=== PATIENT | female | born 1970 | race Caucasian/White ===

== ENCOUNTER 2020-02-07 07:31 | Outpatient (CLI) | payer BC, SELFPAY ==
--- NOTE | ~2020-02-07 | MM_ITS ---
EXAMINATION: MM scrn johnathon implant BI w sagar HISTORY: Screening mammogram TECHNIQUE: Craniocaudal and mediolateral oblique 3-D tomosynthesis images with implant displacement a nd synthetic 2-D images were generated. Craniocaudal and mediolateral oblique views of the breasts wi thout implant displacement were obtained using full field digital mammography. CAD analysis was submi tted and interpreted. COMPARISON: 01/30/2019, 02/05/2018, 03/01/2017 BREAST PARENCHYMAL COMPOSITION: There are scattered areas of fibroglandular density. FINDINGS: There is no evidence of suspicious mass, calcification, or architectural distortion to sugg est malignancy in either breast. There has been no suspicious interval change. IMPRESSION: 1. No mammographic evidence of malignancy. 2. Recommend routine screening mammography in one year. BI-RADS Category 1: Negative Reviewed, dictated and finalized at location A.
== END 2020-02-07 07:32 | disposition home or self-care (01) ==
LOC: ANHIMG 07:34
PROVIDERS: PCP Physician Assistant; Visit Provider Physician Assistant
DX: Z12.31 Encounter for screening mammogram for malignant neoplasm of breast (principal)
CPT/HCPCS: 77063; 77067

== ENCOUNTER 2020-06-30 10:59 | Outpatient (NON) | payer BC, SELFPAY ==
[2020-06-30 23:32] LABS: SARS-CoV-2 RNA PCR Negative
== END 2020-06-30 11:00 ==
PROVIDERS: PCP Physician Assistant; Visit Provider Physician Assistant
DX: Z20.828 Contact with and (suspected) exposure to other viral communicable diseases (principal); R19.7 Diarrhea, unspecified
CPT/HCPCS: 87635; C9803; U0003

== ENCOUNTER 2021-02-05 08:48 | Outpatient (CLI) | payer BC, SELFPAY ==
--- NOTE | ~2021-02-05 | MM_ITS ---
EXAMINATION: MM scrn johnathon implant BI w sagar HISTORY: Screening mammogram TECHNIQUE: Craniocaudal and mediolateral oblique 3-D tomosynthesis images with implant displacement a nd synthetic 2-D images were generated. Craniocaudal and mediolateral oblique views of the breasts wi thout implant displacement were obtained using full field digital mammography. CAD analysis was submi tted and interpreted. COMPARISON: 02/07/2020, 01/30/2019, 02/05/2018 BREAST PARENCHYMAL COMPOSITION: There are scattered areas of fibroglandular density. FINDINGS: There is no evidence of suspicious mass, calcification, or architectural distortion to sugg est malignancy in either breast. There has been no suspicious interval change. IMPRESSION: 1. No mammographic evidence of malignancy. 2. Recommend routine screening mammography in one year. BI-RADS Category 1: Negative Reviewed, dictated and finalized at location A.
== END 2021-02-05 08:49 | disposition home or self-care (01) ==
LOC: ANHIMG 08:51
PROVIDERS: PCP Physician Assistant; Visit Provider Physician Assistant
DX: Z12.31 Encounter for screening mammogram for malignant neoplasm of breast (principal)
CPT/HCPCS: 77063; 77067

== ENCOUNTER → 2021-10-15 16:50 | Outpatient (CLI) | payer BC, SELFPAY ==
--- NOTE | ~2021-10-15 | XR_ITS ---
EXAMINATION: XR ankle LT min 3V, XR foot LT min 3V DATE: 10/15/2021 17:13 INDICATION: Posterior left heel pain TECHNIQUE: 1. Anteroposterior, mortise, additional oblique and lateral view of the left ankle were obtained. 2. Dorsoplantar, two oblique and lateral views of the left foot were obtained. COMPARISON: None. FINDINGS: Alignment of the left foot and ankle is normal. No fracture or osteochondral lesion. Joint spaces are well maintained. No ankle joint effusion. Bone island at the neck of the fourth metatarsal. Tiny ent hesopathic ossicle at the distalmost Achilles tendon. No cortical erosion. No cortical erosion. The s oft tissues are unremarkable. IMPRESSION: 1. Tiny enthesopathic ossicle at the distal Achilles tendon. No acute osseous abnormality. Reviewed, dictated and finalized at location A. IMPRESSION: 1. Tiny enthesopathic ossicle at the distal Achilles tendon. No acute osseous a bnormality.
== END ==
PROVIDERS: Visit Provider Physician Assistant
DX: M25.572 Pain in left ankle and joints of left foot (principal); M67.874 Other specified disorders of tendon, left ankle and foot
CPT/HCPCS: 73610; 73630

== ENCOUNTER 2022-01-20 12:37 | Outpatient (CLI) | payer BC, SELFPAY ==
--- NOTE | ~2022-01-20 | MMUS_ITS ---
EXAMINATION: MM diag johnathon implant BI w sagar, US breast RT limited HISTORY: Right breast pain and palpable lump TECHNIQUE: Additional 3-D tomosynthesis images of the breasts were performed and synthetic 2-D images were generated. CAD analysis was submitted and interpreted. High resolution Limited right breast ult rasound was performed. COMPARISON: Comparison to multiple prior studies sequentially, with oldest reviewed study dated 01/2016. BREAST PARENCHYMAL COMPOSITION: Breast composed of scattered areas of fibroglandular density FINDINGS: MAMMOGRAPHIC FINDINGS: There are no suspicious masses, calcifications or architectural distortion in either breast to sugges t malignancy. There are bilateral subpectoral silicone implants. ULTRASOUND: Limited right breast ultrasound: Normal heterogeneous echotexture without focal solid or cystic mass. IMPRESSION: 1. No evidence for malignancy in either breast. 2. Routine yearly screening mammogram and regular clinical breast examination are recommended. BI-RADS Category 1: Negative Reviewed, dictated and finalized at location A. IMPRESSION: 1. No evidence for malignancy in either breast. 2. Routine yearly screening mammogram and regular clinical breast examination a re recommended. BI-RADS Category 1: Negative
== END 2022-01-20 12:38 | disposition home or self-care (01) ==
PROVIDERS: PCP Physician Assistant; Visit Provider Physician Assistant
DX: N64.4 Mastodynia (principal)
CPT/HCPCS: 76642; 77062; 77066; G0279

== ENCOUNTER 2022-12-21 09:25 | Outpatient (CLI) | payer BC, SELFPAY ==
--- NOTE | ~2022-12-21 | MM_ITS ---
EXAMINATION: MM scrn johnathon implant BI w sagar HISTORY: Screening mammogram TECHNIQUE: Craniocaudal and mediolateral oblique 3-D tomosynthesis images with implant displacement a nd synthetic 2-D images were generated. Craniocaudal and mediolateral oblique views of the breasts wi thout implant displacement were obtained using full field digital mammography. CAD analysis was submi tted and interpreted. COMPARISON: 01/20/2022 diagnostic bilateral mammogram and limited right breast ultrasound examination BREAST PARENCHYMAL COMPOSITION: The breasts are heterogeneously dense, which may obscure small masses . FINDINGS: Status post bilateral augmentation mammoplasty. There is no evidence of suspicious mass, ca lcification, or architectural distortion to suggest malignancy in either breast. There has been no ascencio spicious interval change. IMPRESSION: 1. No mammographic evidence of malignancy. 2. Recommend routine screening mammography in one year. BI-RADS Category 1: Negative Reviewed, dictated and finalized at location A.
== END 2022-12-21 09:26 | disposition home or self-care (01) ==
LOC: ANHIMG 09:27
PROVIDERS: PCP Physician Assistant; Visit Provider Physician Assistant
DX: Z12.31 Encounter for screening mammogram for malignant neoplasm of breast (principal)
CPT/HCPCS: 77063; 77067

== ENCOUNTER 2024-01-08 07:20 | Outpatient (CLI) | payer BC, SELFPAY ==
--- NOTE | ~2024-01-08 | MM_ITS ---
EXAMINATION: MM scrn johnathon implant BI w sagar HISTORY: Screening mammogram TECHNIQUE: Craniocaudal and mediolateral oblique 3-D tomosynthesis images with implant displacement a nd synthetic 2-D images were generated. Craniocaudal and mediolateral oblique views of the breasts wi thout implant displacement were obtained using full field digital mammography. CAD analysis was submi tted and interpreted. COMPARISON: Comparison to multiple prior studies sequentially, with oldest reviewed study dated 02/05. BREAST PARENCHYMAL COMPOSITION: Dense: The breasts are heterogeneously dense, which may obscure small masses FINDINGS: There is no evidence of suspicious mass, calcification, or architectural distortion to sugg est malignancy in either breast. There has been no suspicious interval change. IMPRESSION: 1. No mammographic evidence of malignancy. 2. Recommend routine screening mammography in one year. BI-RADS Category 1: Negative Reviewed, dictated and finalized at location B.
== END 2024-01-08 07:21 | disposition home or self-care (01) ==
LOC: ANHIMG 07:24
PROVIDERS: PCP Physician Assistant; Visit Provider Physician Assistant
DX: Z12.31 Encounter for screening mammogram for malignant neoplasm of breast (principal)
CPT/HCPCS: 77063; 77067

== ENCOUNTER 2024-01-09 13:51 | Outpatient (CLI) | payer BC, SELFPAY ==
--- NOTE | ~2024-01-09 | XR_ITS ---
EXAM: XR knee RT 3V DATE: 01/09/2024 14:05 HISTORY: Pain R knee . COMPARISON: None available. FINDINGS: Normal mineralization. No fracture or dislocation. No lytic or blastic lesion. Mild medial compartment joint space narrowing. Mild medial compartment and patellofemoral compartment osteophyto sis. Moderate volume joint fluid. No erosion or periosteal change. Soft tissues within normal limits. IMPRESSION: Mild medial and patellofemoral compartment osteoarthritis. Moderate joint effusion. Reviewed, dictated and finalized at location K.
== END 2024-01-09 13:52 ==
LOC: MICIMG 13:53
PROVIDERS: PCP Physician Assistant; Visit Provider Physician Assistant
DX: M17.11 Unilateral primary osteoarthritis, right knee (principal); M25.461 Effusion, right knee
CPT/HCPCS: 73562

== ENCOUNTER 2024-12-19 14:11 | Outpatient (CLI) | payer BC, SELFPAY ==
--- NOTE | ~2024-12-19 | MM_ITS ---
EXAMINATION: MM scrn johnathon implant BI w sagar HISTORY: Screening mammogram TECHNIQUE: Craniocaudal and mediolateral oblique 3-D tomosynthesis images with implant displacement a nd synthetic 2-D images were generated. Craniocaudal and mediolateral oblique views of the breasts wi thout implant displacement were obtained using full field digital mammography. CAD analysis was submi tted and interpreted. COMPARISON: Comparison to multiple prior studies sequentially, with oldest reviewed study dated 01/30. BREAST PARENCHYMAL COMPOSITION: Dense: The breasts are heterogeneously dense, which may obscure small masses FINDINGS: There is increasing asymmetry laterally in the left breast on CC views, posterior third. Th ere is no evidence for malignancy in the right breast. IMPRESSION: 1. Developing left breast asymmetry laterally on CC view. 2. Additional mammographic views and possible breast ultrasound are recommended. BI-RADS Category 0: Incomplete: Needs additional imaging evaluation. Reviewed, dictated and finalized at location A. IMPRESSION: 1. Developing left breast asymmetry laterally on CC view. 2. Additional mammographic views and possible breast ultrasound are recommended . BI-RADS Category 0: Incomplete: Needs additional imaging evaluation.
--- OUTSIDE RECORDS SUMMARY | 2024-12-19 14:16 | XMS_ITS | Encounter Summary ---
Author Organization [facility] Address [address] [place] [address] Care Team Providers Care Kitchen Stewardess Name Role Phone Janet Melara Primary Care Pr ovider Encounter Details Date Type Department Care Team (Late st Contact Info) Description 07/10/2019 Lab Requisition [facility] [address] [facility] [place] [id number] Annette Farrell DO [address] [facility] [address] [place] [address] Social History Tobacco Use Types Packs/Day Years Used Date Smoking Tobacco: Never Smokeless Tobacco: Never Alcohol Use Standard Drinks/Week Comments Yes 0 (1 standard drink = 0.6 oz pur e alcohol) social Comments No Sex and Gender Information Value Date Recorded Sex Assigned at Not on file Legal Sex Female 10:02 AM DIRECTOR MEDICAL Gender Identity Not on file Sexual Orientation Not on file documented as of this encounter Plan of Treatment Not on file documented as of this encounter Procedures Procedure Name Priority Date/Time Associated Diagnosis Comments DERMATOPATHOLOGY Routine 07/09/2019 12:0 0 AM DIRECTOR MEDICAL documented in this encounter Results * DERMATOPATHOLOGY (07/09/2019 12:00 AM DIRECTOR MEDICAL) Case Report Dermatopathology Report Case: [id number] Authorizing Provider: Annette Farrell DO Collected: 07/09/2019 12:00 AM Ordering Location: [facility] Lab Received: 07/10/2019 11:51 AM Pathologist: Neeta Delcid MD Specimen: Skin, mid chest 10:55 AM [facility]ERMAT[facility] Final Diagnosis Specimen A. 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 Equality papule x3 months. 10:55 AM [facility]ERMATOPATH[facility] Gross Description Specimen A: Received is one formalin filled container labeled with the patient's name and designated mid chest. The specimen consists of a shave measuring [id number]. Jar 0. 10:55 AM [facility]ERMATOPATHOLOGY [facility] Microscopic Description Specimen A. SKIN, mid chest: The epidermis shows parakeratosis, full thickness disorderly maturation of keratinocytes, mitoses at different levels, and dyskeratotic cells. 10:55 AM [facility] DERMATOPATHOLOGY [facility]OR[facility] Disclaimer An external and internal positive and negative controls are appropriate for the histochemical, immunohistochemical and immunofluorescence stain(s) in this case (if any), except where stated explicitly. The performance characteristics of the stain(s) cited in this report were developed and its performance characteristic determined by the Dermatopathology Laboratory at [facility], directed by Dr. Shreyas Campbell. These tests need not be, and therefore are not, approved by the [place] Food and Drug Administration. The tests are used for clinical purposes. Billing Codes Specimen Charges Stain Charges 83910 1 10:55 AM [facility] DERMATOPATHOLOGY [facility] Embedded Images 10:55 AM [facility] DERMATOPATHOLOGY [facility]OR[facility]ORY Pathology/Cytolog y TISSUE SPECIMEN FROM SKIN / Unknown 07/09/2019 07/10/2019 11:51 AM [facility] us Annette Farrell DO LAB - PATHOLOGY/CYTOLOGY ORDERABLES Final Result DERMATOPATHOLOGY LABORATORY [facility] - Department of Dermatology [address] [facility] [place] [address], [facility] [phone] documented in this encounter Visit Diagnoses Not on filedocumented in this encounter Care Teams Kitchen Stewardess Relationship Specialty Start Date End Date Janet Melara PA [address] [place] [address] PCP - General Physician Hedis Review Nurse 05/29/15 documented as of this encounter
--- OUTSIDE RECORDS SUMMARY | 2024-12-19 14:16 | XMS_ITS | Clinical Summary ---
Author Organization [facility] Address [address] [place] [address] Care Team Providers Care Refrigeration Unit Repairer Name Role Phone Janet Melara Primary Care Pr ovider Source Comments [facility],non-owned Affiliates and Associated Physician Practices is amultiple site organization consisting of ambulatory clinics and hospital sitesin [place], [place], [place] and [place]. This disclosure is being madepursuant to the Care Everywhere program and may not contain all information available regarding this patient. Last updated 18.[facility] Allergies No known active allergies Medications * Be aware that medications may not be up to date on this document. Alwaysverify current medications with the patient. levothyroxine (SYNTHROID) 200 MCG tablet Take 200 mcg by mouth daily before breakfast Active ibuprofen (MOTRIN) 600 MG tablet Take 1 Tab by mouth every 6 hours as needed for Pain 50 Tab 0 5 Active oxyCODONE-aceta minophen (PERCOCET) 5-325 MG tablet Take 1 Tab by mouth every 6 hours as needed for Pain 30 Tab 0 5 Active Active Problems Problem Noted Date Diagnosed Date Pain in joint involving left pelvic region and t high 06/03/2015 Chronic pelvic pain in female 06/03/2015 Endometriosis 06/03/2015 Preop examination Social History Tobacco Use Types Packs/Day Years Used Date Smoking Tobacco: Never Smokeless Tobacco: Never Alcohol Use Standard Drinks/Week Comments Yes 0 (1 standard drink = 0.6 oz pur e alcohol) social Comments No Sex and Gender Information Value Date Recorded Sex Assigned at Not on file Legal Sex Female 10:02 AM MID LEVEL PRACTITIONER Gender Identity Not on file Sexual Orientation Not on file Last Filed Vital Signs Vital Sign Reading Time Taken Comments Blood Pressure 124/72 07/12/2017 3:47 PM MID LEVEL PRACTITIONER Pulse 70 06/03/2015 11:35 AM MID LEVEL PRACTITIONER Temperature 36.7 C (98 F) 06/03/2015 10:47 AM MID LEVEL PRACTITIONER Respiratory Rate 18 06/03/2015 11:35 AM MID LEVEL PRACTITIONER Oxygen Saturation 100% 06/03/2015 11:35 AM MID LEVEL PRACTITIONER Inhaled Oxygen Concentration - - Weight 77.1 kg (170 lb) 07/12/2017 3:47 PM MID LEVEL PRACTITIONER Height 172.7 cm (5' 8) 07/12/2017 3:47 PM MID LEVEL PRACTITIONER Body Mass Index 25.85 07/12/2017 3:47 PM MID LEVEL PRACTITIONER Plan of Treatment Health Maintenance Due Date Last Done Comments COLOGUARD (AGES 45-75) - COL ON CA SCREENING 1969 COLON MONITORING 1969 COLONOSCOPY - COLON CA SCREENING 1969 CT COLONOGRAPHY - COLON CA SCREENING 1969 Colorectal Cancer Screening 1969 FIT - COLON CA SCREENING 1969 FLEX SIG - COLON CA SCREENING 1969 LIPID TESTING 1969 MAMMOGRAM 1969 PAP SMEAR 1969 HIV SCREENING 1984 HEPATITIS C SCREENING 12/25/1987 DTAP/TDAP/TD VACCINES (1 - Tdap) 1988 HEPATITIS B VACCINE (1 of 3 - 19+ 3-dose series) 1988 PNEUMOCOCCAL VACCINE 50+ (1 of 1 - PCV) 12/30/2019 ZOSTER VACCINE (1 of 2) 12/30/2019 COVID-19 VACCINE ( - 2023-2 5 season) 2024 DEPRESSION SCREENING 07/24/2024 INFLUENZA VACCINE (Season Ended) 2025 HIB VACCINE Aged Out No longer eligi ble based on patient's age to complete this topic HPV VACCINE Aged Out No longer eligi ble based on patient's age to complete this topic MENINGOCOCCAL (Group B) VACC INE SHARED DECISION-MAKING Aged Out No longer eligibl e based on patient's age to complete this topic MENINGOCOCCAL GROUPS A/C/Y/W VACCINE Aged Out No longer eligible b ased on patient's age to complete this topic Insurance ANTHEM ANTHEM Care Teams Refrigeration Unit Repairer Relationship Specialty Start Date End Date Janet Mealra PA [address] [place] [id number] PCP - General Physician Diagnostic Medical Sonographer 05/29/15
--- OUTSIDE RECORDS SUMMARY | 2024-12-19 14:16 | XMS_ITS | Data Portability ---
Author Organization [facility], Main Office Address [address] [place] [address] Care Team Providers Care Manager Test Name Role Phone SHAKIRAANDREW YENI Primary Care Provider [phone] YENI BOSE Referring Provider [phone] Assessment No assessment recorded. Plan of Treatment Reminders Order Date Submit Date Provider Last Modified By Organization Details Last Modified Time Details Appointments None recorded. Lab T3, free, serum or plasma 2022 023 [facility], [address], [place], [address], 3 05:01:33 TSH + free T4, serum 2022 023 [facility], [address], [place], [address], 3 05:01:33 thyroid peroxidase (tpo) Ab, serum 2022 023 [facility], [address], [place], [address], 3 05:01:33 CBC w/ auto diff 2022 023 [facility], [address], [place], [address], 3 05:50:46 CMP, serum or plasma 2022 023 [facility], [address], [place], [address], 3 05:50:44 urinalysis complete, reflex culture 2022 023 [facility], [address], [place], [address], 3 05:50:46 lipid panel, serum 2022 023 [facility], [address], [place], [address], 3 05:50:42 HbA1c (hemoglobin A1c), blood 2022 023 [facility], [address], [place], [address], 3 05:50:45 Referral None recorded. Procedures None recorded. Surgeries None recorded. Imaging None recorded. Medication Orders None recorded. Patient TargetsNo targets recorded. Patient InstructionsNo instructions recorded. Reason for Referral None Reported. Results Created Date Observation Date Name Description Value Unit Range Abnormal Flag Note LastModifiedBy Organization Detail LastModifiedTime 02/19/20 21 02/19/2021 SARS COV 2 AB (IGG) SPIKE , SEMI QN sars cov 2 Ab (IgG) spike, semi qn <1.00 index <1.00 normal Refer ence Range INDEX INTER PRETA TION <1.00 Negat james > or = 1.00 Posit james This test is inten ded to help ident anatoly indiv idual s with antib odies to SARS- CoV-2 (COVI D-19) . The resul ts of this semi- quant itati ve test shoul d not be inter prete d as an indic ation or degre e of immun ity or prote ction from reinf ectio n. A test resul t that is 1.00 or more (Posi tive) means antib odies to SARS- CoV-2 were detec brandon in the blood sampl e by the test. This could mean that the indiv idual may have an immun e respo nse to a recen t or prior infec tion with SARS- CoV-2 . Posit james resul ts may occur after COVID -19 vacci natio n, but the clini manolo signi fican ce of a posit james antib ramo resul t for indiv idual s that have recei ilya a COVID -19 vacci ne is unkno wn, and the perfo rmanc e of the test has not been estab lishe d in COVID -19 vacci nees. False posit james resul ts for the test may occur due to cross - react ivity from pre-e xisti ng antib odies or other possi ble cause s. A test resul t that is less than 1.00 (Nega tive) means that antib odies were not detec brandon in the blood sampl e by the test. This could mean that the indiv idual has not been previ ously infec brandon with SARS- CoV-2 . The clini manolo signi fican ce of a negat james antib ramo resul t for indiv idual s that have recei ilya a COVID -19 vacci ne is unkno wn. The perfo rmanc e of the test has not been estab lishe d in COVID -19 vacci nees. False negat james resul ts for the test may occur if the indiv idual 's antib odies have not reach ed a suffi cient level for the test to be able to detec t them. Antib odies can take up to two to three weeks (some times longe r) to devel op after someo ne is infec brandon. How long antib odies to SARS- CoV-2 last after infec tion is not known . This test shoul d not be used to diagn ose an activ e SARS- CoV-2 infec tion. If an activ e infec tion is suspe cted, direc t molec ular or antig en testi ng for SARS- CoV-2 is recom joseph d. Oliver martinez w the Fact Sheet s avail able for healt hcare provi ders and patie nts using the follo wing websi eusebio: https ://suleman w.Que stDia gnost ics.c om/ho me/Co vid-1 9/HCP /anti body/ fact- sheet 8 https ://suleman w.Que stDia gnost ics.c om/ho me/Co vid-1 9/Pat ients / antib ramo/f act-s heet8 Healt hcare Provi ders: For addit ional infor aaron rodgers e refer to: http: //christa fernandez stdia gnost ics.c om/fa q/FAQ 219 (This link is being provi ded for infor aaron leonardo/ educa sil l purpo ses only. ) This test has been autho rized by the FDA under an Emerg ency Use Autho rizat ion (EUA) for use by autho rized labor atori es. The FDA autho rized label ing is avail able on the [facility] websi te: www.Q uestD iagno [employer]/ Covid 19. Not Available [employer] [address] [address] [place], [address], 02/19/2021 08:02:31 08/09/1908/10/2021 T3, FREE T3, free 2.5 pg/mL 2.3-4. 2 normal Not Available [facility] [address] [address] [place], [address], 08/10/2021 07:50:52 08/09/19 22 08/10/2021 TSH+F REE T4 TSH 0.65 mIU/L normal Refer ence Range > or = 20 Years 0.40- 4.50 Pregn octavio Range s First trime ster 0.26- 2.66 Secon d trime ster 0.55- 2.73 Third trime ster 0.43- 2.91 Not Available [facility] [address] [address] [place], [address], 08/10/2021 07:50:51 08/09/1908/10/2021 TSH+F REE T4 T4, free 1.4 NG/dL 0.8-1. 8 normal Not Available [facility] [address] [address] [place], [address], 08/10/2021 07:50:51 08/09/19 22 08/10/2021 URINA LYSIS ,COMP LETE( REFL) color dark yellow yellow normal Not Available [address], [address], 08/10/2021 12:57:19 08/09/19 22 08/10/2021 URINA LYSIS ,COMP LETE( REFL) appearance turbid clear abnormal Not Available [address], [address], 08/10/2021 12:57:19 08/09/19 22 08/10/2021 URINA LYSIS ,COMP LETE( REFL) specific gravity 1.028 1.001- 1.035 normal Not Available [address], [address], 08/10/2021 12:57:19 08/09/19 22 08/10/2021 URINA LYSIS ,COMP LETE( REFL) pH < or = 5.0 5.0-8. 0 normal Not Available [address], [address], 08/10/2021 12:57:19 08/09/19 22 08/10/2021 URINA LYSIS ,COMP LETE( REFL) glucose negati ve negati ve normal Not Available [address], [address], 08/10/2021 12:57:19 08/09/19 22 08/10/2021 URINA LYSIS ,COMP LETE( REFL) bilirubin negati ve negati ve normal Not Available [facility] [address], [address], 08/10/2021 12:57:19 08/09/19 22 08/10/2021 URINA LYSIS ,COMP LETE( REFL) ketones trace negati ve abnormal Not Available [facility] [address], [address], 08/10/2021 12:57:19 08/09/19 22 08/10/2021 URINA LYSIS ,COMP LETE( REFL) occult blood negati ve negati ve normal Not Available [address], [address], 08/10/2021 12:57:19 08/09/19 22 08/10/2021 URINA LYSIS ,COMP LETE( REFL) protein negati ve negati ve normal Not Available [address], [address], 08/10/2021 12:57:19 08/09/19 22 08/10/2021 URINA LYSIS ,COMP LETE( REFL) nitrite negati ve negati ve normal Not Available [address], [address], 08/10/2021 12:57:19 08/09/19 22 08/10/2021 URINA LYSIS ,COMP LETE( REFL) leukocyte esterase trace negati ve abnormal Not Available [address], [address], 08/10/2021 12:57:19 08/09/19 22 08/10/2021 URINA LYSIS ,COMP LETE( REFL) WBC 0-5 /hpf < or = 5 normal Not Available [address], [address], 08/10/2021 12:57:19 08/09/19 22 08/10/2021 URINA LYSIS ,COMP LETE( REFL) RBC 0-2 /hpf < or = 2 normal Not Available [address], [address], 08/10/2021 12:57:19 08/09/19 22 08/10/2021 URINA LYSIS ,COMP LETE( REFL) squamous epithelial cells 20-40 /hpf < or = 5 abnormal Not Available [address], [address], 08/10/2021 12:57:19 08/09/19 22 08/10/2021 URINA LYSIS ,COMP LETE( REFL) bacteria few /hpf none seen abnormal Not Available [address], [address], 08/10/2021 12:57:19 08/09/19 22 08/10/2021 URINA LYSIS ,COMP LETE( REFL) hyaline cast 0-5 /lpf none seen abnormal Not Available [facility] [address], [address], 08/10/2021 12:57:19 08/09/19 22 08/10/2021 CBC (INCL UDES DIFF/ PLT) white blood cell count 3.7 thous and/u L 3.8-10 .8 low Not Available [address], [address], 08/10/2021 12:57:19 08/09/19 22 08/10/2021 CBC (INCL UDES DIFF/ PLT) red blood cell count 4.38 ian on/uL 3.80-5 .10 normal Not Available [address], [address], 08/10/2021 12:57:08/09/19 22 08/10/2021 CBC (INCL UDES DIFF/ PLT) hemoglobin 13.3 g/dL 11.7-1 5.5 normal Not Available [address], [address], 08/10/2021 12:57:08/09/19 22 08/10/2021 CBC (INCL UDES DIFF/ PLT) hematocrit 39.7 % 35.0-4 5.0 normal Not Available [address], [address], 08/10/2021 12:57:19 08/09/19 22 08/10/2021 CBC (INCL UDES DIFF/ PLT) MCV 90.6 fL 80.0-1 00.0 normal Not Available [address], [address], 08/10/2021 12:57:19 08/09/19 22 08/10/2021 CBC (INCL UDES DIFF/ PLT) MCH 30.4 pg 27.0-3 3.0 normal Not Available [address], [address], 08/10/2021 12:57:19 08/09/19 22 08/10/2021 CBC (INCL UDES DIFF/ PLT) MCHC 33.5 g/dL 32.0-3 6.0 normal Not Available [address], [address], 08/10/2021 12:57:19 08/09/19 22 08/10/2021 CBC (INCL UDES DIFF/ PLT) RDW 12.1 % 11.0-1 5.0 normal Not Available [address], [address], 08/10/2021 12:57:19 08/09/19 22 08/10/2021 CBC (INCL UDES DIFF/ PLT) platelet count 164 thous and/u L 140-40 0 normal Not Available [address], [address], 08/10/2021 12:57:19 08/09/19 22 08/10/2021 CBC (INCL UDES DIFF/ PLT) MPV 12.2 fL 7.5-12 .5 normal Not Available [address], [address], 08/10/2021 12:57:19 08/09/19 22 08/10/2021 CBC (INCL UDES DIFF/ PLT) absolute neutrophils 2128 cells /uL 1500-7 800 normal Not Available [address] [place], [address], 08/10/2021 12:57:19 08/09/19 22 08/10/2021 CBC (INCL UDES DIFF/ PLT) absolute lymphocytes 1151 cells /uL 850-39 00 normal Not Available [facility] [address] [address] [place], [address], 08/10/2021 12:57:19 08/09/19 22 08/10/2021 CBC (INCL UDES DIFF/ PLT) absolute monocytes 211 cells /uL 200-95 0 normal Not Available [facility] [address], [address], 08/10/2021 12:57:19 08/09/19 22 08/10/2021 CBC (INCL UDES DIFF/ PLT) lymphocytes 31.1 % normal Not Available [facility] [address] [place], [address], 08/10/2021 12:57:19 08/09/19 22 08/10/2021 CBC (INCL UDES DIFF/ PLT) absolute eosinophils 170 cells /uL 15-500 normal Not Available [facility] [address], [address], 08/10/2021 12:57:19 08/09/19 22 08/10/2021 CBC (INCL UDES DIFF/ PLT) absolute basophils 41 cells /uL 0-200 normal Not Available [facility] [address], [address], 08/10/2021 12:57:19 08/09/19 22 08/10/2021 CBC (INCL UDES DIFF/ PLT) neutrophils 57.5 % normal Not Available [facility] [address], [address], 08/10/2021 12:57:19 08/09/19 22 08/10/2021 CBC (INCL UDES DIFF/ PLT) monocytes 5.7 % normal Not Available [facility] - [address], [address], 08/10/2021 12:57:19 08/09/19 22 08/10/2021 CBC (INCL UDES DIFF/ PLT) eosinophils 4.6 % normal Not Available [address], [address], 08/10/2021 12:57:19 08/09/19 22 08/10/2021 CBC (INCL UDES DIFF/ PLT) basophils 1.1 % normal Not Available [facility] [address], [address], 08/10/2021 12:57:19 08/09/19 22 08/10/2021 HEMOG LOBIN A1C hemoglobin A1C 5.2 %_of_ total _HGB <5.7 normal Not Available [address], [address], 08/10/2021 12:57:18 08/09/19 22 08/10/2021 COMPR EHENS JAMES METAB OLIC PANEL urea nitrogen (BUN) 19 mg/dL 7-25 normal Not Available [address], [address], 08/10/2021 12:57:18 08/09/19 22 08/10/2021 COMPR EHENS JAMES METAB OLIC PANEL glucose 81 mg/dL 65-99 normal Fasti ng refer ence inter bambi Not Available [address], [address], 08/10/2021 12:57:18 08/09/19 22 08/10/2021 COMPR EHENS JAMES METAB OLIC PANEL creatinine 0.85 mg/dL 0.50-1 .05 normal For patie nts >49 years of age, the refer ence limit for Creat inine is appro ximat baldo 13% highe r for peopl e ident ified as Afric an-Am alexander n. Not Available [address] [place], [address], 08/10/2021 12:57:18 08/09/19 22 08/10/2021 COMPR EHENS JAMES METAB OLIC PANEL eGFR non-afr. chinese 79 mL/mi n/1.7 3m2 > or = 60 normal Not Available [address], [address], 08/10/2021 12:57:18 08/09/19 22 08/10/2021 COMPR EHENS JAMES METAB OLIC PANEL eGFR 92 mL/mi n/1.7 3m2 > or = 60 normal Not Available [address], [address], 08/10/2021 12:57:18 08/09/19 22 08/10/2021 COMPR EHENS JAMES METAB OLIC PANEL BUN/creatini ne ratio not applic able (calc ) 6-22 Not Available [address], [address], 08/10/2021 12:57:18 08/09/19 22 08/10/2021 COMPR EHENS JAMES METAB OLIC PANEL sodium 143 mmol/ L 135-14 6 normal Not Available [address], [address], 08/10/2021 12:57:18 08/09/19 22 08/10/2021 COMPR EHENS JAMES METAB OLIC PANEL potassium 4.4 mmol/ L 3.5-5. 3 normal Not Available [facility] [address], [address], 08/10/2021 12:57:18 08/09/19 22 08/10/2021 COMPR EHENS JAMES METAB OLIC PANEL chloride 105 mmol/ L 98-110 normal Not Available [facility] [address], [address], 08/10/2021 12:57:18 08/09/19 22 08/10/2021 COMPR EHENS JAMES METAB OLIC PANEL carbon dioxide 32 mmol/ L 20-32 normal Not Available [address], [address], 08/10/2021 12:57:18 08/09/19 22 08/10/2021 COMPR EHENS JAMES METAB OLIC PANEL calcium 9.6 mg/dL 8.6-10 .4 normal Not Available [address], [address], 08/10/2021 12:57:18 08/09/19 22 08/10/2021 COMPR EHENS JAMES METAB OLIC PANEL protein, total 6.8 g/dL 6.1-8. 1 normal Not Available [address], [address], 08/10/2021 12:57:18 08/09/19 22 08/10/2021 COMPR EHENS JAMES METAB OLIC PANEL albumin 4.5 g/dL 3.6-5. 1 normal Not Available [address], [address], 08/10/2021 12:57:18 08/09/19 22 08/10/2021 COMPR EHENS JAMES METAB OLIC PANEL globulin 2.3 g/dL_ (calc ) 1.9-3. 7 normal Not Available [address], [address], 08/10/2021 12:57:18 08/09/19 22 08/10/2021 COMPR EHENS JAMES METAB OLIC PANEL albumin/glob ulin ratio 2.0 (calc ) 1.0-2. 5 normal Not Available [address], [address], 08/10/2021 12:57:18 08/09/19 22 08/10/2021 COMPR EHENS JAMES METAB OLIC PANEL bilirubin, total 0.7 mg/dL 0.2-1. 2 normal Not Available [address], [address], 08/10/2021 12:57:18 08/09/19 22 08/10/2021 COMPR EHENS JAMES METAB OLIC PANEL alkaline phosphatase 63 U/L 37-153 normal Not Available [address], [address], 08/10/2021 12:57:18 08/09/19 22 08/10/2021 COMPR EHENS JAMES METAB OLIC PANEL AST 18 U/L 10-35 normal Not Available [address], [address], 08/10/2021 12:57:18 08/09/19 22 08/10/2021 COMPR EHENS JAMES METAB OLIC PANEL ALT 17 U/L 6-29 normal Not Available [address], [address], 08/10/2021 12:57:18 08/09/19 22 08/10/2021 LIPID PANEL WITH RATIO S cholesterol, total 206 mg/dL <200 high Not Available [address], [address], 08/10/2021 12:57:17 08/09/19 22 08/10/2021 LIPID PANEL WITH RATIO S HDL cholesterol 71 mg/dL > or = 50 normal Not Available [address], [address], 08/10/2021 12:57:17 08/09/19 22 08/10/2021 LIPID PANEL WITH RATIO S triglyceride s 44 mg/dL <150 normal Not Available [address], [address], 08/10/2021 12:57:17 08/09/19 22 08/10/2021 LIPID PANEL WITH RATIO S LDL-choleste rol 122 mg/dL _(manolo c) high Refer ence range : <100 Joshua able range <100 mg/dL for prima ry preve ntion ; <70 mg/dL for patie nts with CHD or diabe tic patie nts with > or = 2 CHD risk facto rs. LDL-C is now calcu lated using the Laila n-Hop kins kylahu emiliano n, which is a valid ated novel donnyo lili ahmadii nneka josete r accur acy than the Fried dre equat ion in the estim ation of LDL-C . Laila rogers SS et al. CHELSEY. 2013; 310(1 9): 2061- 2068 (http ://ed ucati on.Qu Simulmedia. com/f aq/FA Q164) Not Available [facility] [address] [address] [place], [address], 08/10/2021 12:57:17 08/09/19 22 08/10/2021 LIPID PANEL WITH RATIO S chol/HDLC ratio 2.9 (calc ) <5.0 normal Not Available [facility] [address] [address] [place], [address], 08/10/2021 12:57:17 08/09/19 22 08/10/2021 LIPID PANEL WITH RATIO S LDL/HDL ratio 1.7 (calc ) Below avera ge Risk: <2.34 [place] Risk: 2.35- 4.12 Moder ate Risk: 4.13- 5.56 High Risk: >5.57 Not Available [facility] [address] [address] , [place], [address], 08/10/2021 12:57:17 08/09/19 22 08/10/2021 LIPID PANEL WITH RATIO S non HDL cholesterol 135 mg/dL _(manolo c) <130 high For patie nts with diabe eusebio plus 1 major ASCVD risk facto r, treat ing to a non-H DL-C goal of <100 mg/dL (LDL- C of <70 mg/dL ) is consi juan franciscod a therespinoza peeliana c optio n. Not Available [facility] [address] [address], [place], [address], 08/10/2021 12:57:17 08/09/19 22 08/10/2021 SARS COV2, IGG NUCLE OCAP, IGM SPIKE , QL sars cov 2 Ab IgG negati ve negati ve normal Refer ence range : Negat james These tests are inten ded for use as an aid in ident ifyin g indiv idual s with an adapt james immun e respo nse to SARS- CoV-2 , indic ating recen t or prior infec tion. Resul ts are for the detec tion of SARS- CoV-2 IgG and IgM antib odies . IgM antib odies to SARS- CoV-2 are gener ally detec table in blood sever al days after initi al infec tion, with IgG antib odies typic ally reach ing detec table level s a few days later . The durat ion of time antib odies are prese nt post- infec tion is not well mike cteri zed. At this time, it is unkno wn how long IgG and IgM antib odies persi st follo wing infec tion, or if the prese nce of antib odies confe rs prote ctive immun ity. Indiv idual s may have detec table virus prese nt for sever al weeks follo wing seroc onver israel. Negat james resul ts for antib odies do not precl ude acute SARS- CoV-2 infec tion. These tests shoul d not be used to diagn ose acute SARS- CoV-2 infec tion. If acute infec tion is suspe cted, direc t testi ng for SARS- CoV-2 is neces amy. False posit james resul ts for the tests may occur due to cross -reac tivit y from pre-e xisti ng antib odies or other possi ble cause s. The sensi tivit y of the tests early after infec tion is unkno wn. IgM Resul t IgG Resul t Inter preta tion Negat james Negat james Antib odies not detec brandon. Does not precl ude acute SARS- CoV-2 infec tion. Negat james Posit james Sugge sts past expos ure to SARS- CoV-2 . Posit james Negat james Sugge sts recen t expos ure to SARS- CoV-2 . Posit james Posit james Sugge sts recen t expos ure to SARS- CoV-2 . Pleas e revyung w the Fact Sheet s avail able for healt h care provi ders and patie nts using the follo wing websi eusebio: [facility] /home /Covi d-19/ HCP/a ntibo dy/fa ct-sh eet2 [facility] /home /Covi d-19/ Patie nts/a ntibo dy/fa ct-sh eet2 [facility] /home /Covi d-19/ HCP/a ntibo dy/fa ct-sh eet6 [facility] /home /Covi d-19/ Patie nts/a ntibo dy/fa ct-sh eet6 These tests have been autho rized by the [employer] under an Emerg ency Use Autho rizat ion (EUA) for use by autho rized labor atori es. The FDA autho rized fact sheet s are avail able on the [facility] websi te: www.Yotomo uestD Xtract/ Covid 19. For addit ional infor aaron rodgers e refer to http: //christa rogers.que stdia gnost ics.c om/fa q/FAQ 219 (This link is being provi ded for infor aaron leoanrdo/ educa sil anguiano purpo ses only. ) Not Available [employer] [facility] [address] [place], [place] [address], [address], 08/10/2021 12:57:16 08/09/19 22 08/10/2021 SARS COV2, IGG NUCLE OCAP, IGM SPIKE , QL sars cov 2 IgM negati ve negati ve normal Refer ence range : Negat james These tests are inten ded for use as an aid in ident ifyin g indiv idual s with an adapt james immun e respo nse to SARS- CoV-2 , indic ating recen t or prior infec tion. Resul ts are for the detec tion of SARS- CoV-2 IgG and IgM antib odies . IgM antib odies to SARS- CoV-2 are gener ally detec table in blood sever al days after initi al infec tion, with IgG antib odies typic ally reach ing detec table level s a few days later . The durat ion of time antib odies are prese nt post- infec tion is not well mike cteri zed. At this time, it is unkno wn how long IgG and IgM antib odies persi st follo wing infec tion, or if the prese nce of antib odies confe rs prote ctive immun ity. Indiv idual s may have detec table virus prese nt for sever al weeks follo wing seroc onver israel. Negat james resul ts for antib odies do not precl ude acute SARS- CoV-2 infec tion. These tests shoul d not be used to diagn ose acute SARS- CoV-2 infec tion. If acute infec tion is suspe cted, direc t testi ng for SARS- CoV-2 is neces amy. False posit james resul ts for the tests may occur due to cross -reac tivit y from pre-e xisti ng antib odies or other possi ble cause s. The sensi tivit y of the tests early after infec tion is unkno wn. IgM Resul t IgG Resul t Inter preta tion Negat james Negat james Antib odies not detec brandon. Does not precl ude acute SARS- CoV-2 infec tion. Negat james Posit james Sugge sts past expos ure to SARS- CoV-2 . Posit james Negat james Sugge sts recen t expos ure to SARS- CoV-2 . Posit james Posit james Sugge sts recen t expos ure to SARS- CoV-2 . Pleryan e michelle w the Fact Sheet s avail able for healt h care provi ders and patie nts using the follo wing websi eusebio: [facility] /home /Covi d-19/ HCP/a ntibo dy/fa ct-sh eet2 [facility] /home /Covi d-19/ Patie nts/a ntibo dy/fa ct-sh eet2 [facility] /home /Covi d-19/ HCP/a ntibo dy/fa ct-sh eet6 [facility] /home /Covi d-19/ Patie nts/a ntibo dy/fa ct-sh eet6 These tests have been autho rized by the FDA under an Emerg ency Use Autho rizat ion (EUA) for use by autho rized labor atori es. The FDA autho rized fact sheet s are avail able on the [facility] websi te: www.Q uestD iagno stics .Third Age/ Covid 19. For addit ional infor aaron rodgers e refer to http: //[facility] nitin fernandez stdia gnost ics.c om/fa q/FAQ 219 (This link is being provi ded for infor aaron leonardo/ educa sil l purpo ses only. ) Not Available [employer] [facility] [address] [place], [address], 08/10/2021 12:57:16 01/19/2001/19/2022 INSUL IN insulin 5.7 uIU/m L normal Refer ence Range < or = 19.6 Risk: Optim al < or = 19.6 Moder ate NA High >19.6 Adult cardi ovasc ular event risk categ ory cut point s (opti mal, moder ate, high) are based on [facility] popul ation data from 07/12 11. This insul in assay shows stron g cross -reac tivit y for some insul in analo gs (lisp ro, aspar t, and glarg ine) and much lower cross -reac tivit y with other s (dete spencer, gluli sine) . Not Available [employer] [facility] [address] [place], [address], 01/19/2022 16:26:43 01/19/2001/19/2022 C-PEP TIDE C-peptide 0.78 NG/mL 0.80-3 .85 low Not Available [facility] [address] [address] [place], [address], 01/19/2022 16:26:42 01/19/20 22 01/19/2022 LIPID PANEL WITH RATIO S cholesterol, total 175 mg/dL <200 normal Not Available [facility] [address] [place], [address], 01/19/2022 16:26:42 01/19/20 22 01/19/2022 LIPID PANEL WITH RATIO S HDL cholesterol 65 mg/dL > or = 50 normal Not Available [facility] [place] [address] [place], [address], 01/19/2022 16:26:42 01/19/20 22 01/19/2022 LIPID PANEL WITH RATIO S triglyceride s 61 mg/dL <150 normal Not Available [facility] [address], [address], 01/19/2022 16:26:42 01/19/20 22 01/19/2022 LIPID PANEL WITH RATIO S LDL-choleste rol 95 mg/dL _(manolo c) normal Refer ence range : <100 Joshua able range <100 mg/dL for prima ry preve ntion ; <70 mg/dL for patie nts with CHD or diabe tic patie nts with > or = 2 CHD risk facto rs. LDL-C is now calcu lated using the Laila rogers-Hop kins kylahu emiliano n, which is a valid ated novel metho d marc garces r accur acy than the Fried dre equat ion in the estim ation of LDL-C . Laila rogers SS et al. CHELSEY. 2013; 310(1 9): 2061- 2068 (http ://ed ucati on.Qu Orestes arthur [place]. com/f aq/FA Q164) Not Available [facility] [place] [address] [place], [address], 01/19/2022 16:26:42 01/19/20 22 01/19/2022 LIPID PANEL WITH RATIO S chol/HDLC ratio 2.7 (calc ) <5.0 normal Not Available [address] [place], [address], 01/19/2022 16:26:42 01/19/20 22 01/19/2022 LIPID PANEL WITH RATIO S LDL/HDL ratio 1.5 (calc ) Below avera ge Risk: <2.34 [place] Risk: 2.35- 4.12 Moder ate Risk: 4.13- 5.56 High Risk: >5.57 Not Available [facility] [address] [address] [place], [address], 01/19/2022 16:26:42 01/19/20 22 01/19/2022 LIPID PANEL WITH RATIO S non HDL cholesterol 110 mg/dL _(manolo c) <130 normal For patie nts with diabe eusebio plus 1 major ASCVD risk facto r, treat ing to a non-H DL-C goal of <100 mg/dL (LDL- C of <70 mg/dL ) is consi juan franciscod a arturo negron c optio n. Not Available [facility] [address] [address] [place], [address], 01/19/2022 16:26:42 10/22/19 23 10/22/2022 LIPID PANEL WITH RATIO S cholesterol, total 154 mg/dL <200 normal Not Available [facility] [address] [address] [place], [address], 10/22/2022 05:50:42 10/22/19 23 10/22/2022 LIPID PANEL WITH RATIO S HDL cholesterol 48 mg/dL > or = 50 low Not Available [facility] [address] [address] [place], [address], 10/22/2022 05:50:42 10/22/19 23 10/22/2022 LIPID PANEL WITH RATIO S triglyceride s 72 mg/dL <150 normal Not Available [facility] [address] [address] [place], [address], 10/22/2022 05:50:42 10/22/19 23 10/22/2022 LIPID PANEL WITH RATIO S LDL-choleste rol 90 mg/dL _(manolo c) normal Refer ence range : <100 Joshua able range <100 mg/dL for prima ry preve ntion ; <70 mg/dL for patie nts with CHD or diabe tic patie nts with > or = 2 CHD risk facto rs. LDL-C is now calcu lated using the Laila n-Hop kins calcu latio n, which is a valid ated novel metho d provi ding mili r accur acy than the Fried dre equat ion in the estim ation of LDL-C . Laila rogers SS et al. CHELSEY. 2013; 310(1 9): 2061- 2068 (http ://ed ucati on.Bagel Nash. com/f aq/FA Q164) Not Available [employer] [address] [address] [place], [address], 10/22/2022 05:50:42 10/22/19 23 10/22/2022 LIPID PANEL WITH RATIO S chol/HDLC ratio 3.2 (calc ) <5.0 normal Not Available [employer] [address] [address] [place], [address], 10/22/2022 05:50:42 10/22/1910/22/2022 LIPID PANEL WITH RATIO S LDL/HDL ratio 1.9 (calc ) Below avera ge Risk: <2.34 [place] Risk: 2.35- 4.12 Moder ate Risk: 4.13- 5.56 High Risk: >5.57 Not Available [employer] [facility] [address] [place], [address], 10/22/2022 05:50:42 10/22/1910/22/2022 LIPID PANEL WITH RATIO S non HDL cholesterol 106 mg/dL _(manolo c) <130 normal For patie nts with diabe eusebio plus 1 major ASCVD risk facto r, treat ing to a non-H DL-C goal of <100 mg/dL (LDL- C of <70 mg/dL ) is consi dered a thera pegiselli c optio n. Not Available [address], [address], 10/22/2022 05:50:42 10/22/19 23 10/22/2022 COMPR EHENS JAMES METAB OLIC PANEL glucose 90 mg/dL 65-99 normal Fasti ng refer ence inter bambi Not Available [address] [place], [address], 10/22/2022 05:50:44 10/22/19 23 10/22/2022 COMPR EHENS JAMES METAB OLIC PANEL urea nitrogen (BUN) 15 mg/dL 7-25 normal Not Available [address], [address], 10/22/2022 05:50:44 10/22/19 23 10/22/2022 COMPR EHENS JAMES METAB OLIC PANEL creatinine 0.73 mg/dL 0.50-1 .03 normal Not Available [address], [address], 10/22/2022 05:50:44 10/22/19 23 10/22/2022 COMPR EHENS JAMES METAB OLIC PANEL eGFR 99 mL/mi n/1.7 3m2 > or = 60 normal The eGFR is based on the CKD-E PI 2020 equat ion. To calcu late the new eGFR from a previ ous Creat inine or Cysta tin C resul t, go to https ://suleman w.micheal mims.o marcelina/teo harmon s/ kdoqi /gfr% 5Fcal culat or Not Available [address], [address], 10/22/2022 05:50:44 10/22/19 23 10/22/2022 COMPR EHENS JAMES METAB OLIC PANEL BUN/creatini ne ratio NOT APPLIC ABLE (calc ) 6-22 Not Available [facility] [address] [address] n, [place], [address], 10/22/2022 05:50:44 10/22/19 23 10/22/2022 COMPR EHENS JAMES METAB OLIC PANEL sodium 136 mmol/ L 135-14 6 normal Not Available [address], [address], 10/22/2022 05:50:44 10/22/19 23 10/22/2022 COMPR EHENS JAMES METAB OLIC PANEL potassium 4.8 mmol/ L 3.5-5. 3 normal Not Available [address], [address], 10/22/2022 05:50:44 10/22/19 23 10/22/2022 COMPR EHENS JAMES METAB OLIC PANEL chloride 104 mmol/ L 98-110 normal Not Available [address], [address], 10/22/2022 05:50:44 10/22/19 23 10/22/2022 COMPR EHENS JAMES METAB OLIC PANEL carbon dioxide 28 mmol/ L 20-32 normal Not Available [address], [address], 10/22/2022 05:50:44 10/22/19 23 10/22/2022 COMPR EHENS JAMES METAB OLIC PANEL calcium 8.6 mg/dL 8.6-10 .4 normal Not Available [address], [address], 10/22/2022 05:50:44 10/22/19 23 10/22/2022 COMPR EHENS JAMES METAB OLIC PANEL protein, total 5.9 g/dL 6.1-8. 1 low Not Available [address], [address], 10/22/2022 05:50:44 10/22/19 23 10/22/2022 COMPR EHENS JAMES METAB OLIC PANEL albumin 3.8 g/dL 3.6-5. 1 normal Not Available [address], [address], 10/22/2022 05:50:44 10/22/19 23 10/22/2022 COMPR EHENS JAMES METAB OLIC PANEL globulin 2.1 g/dL_ (calc ) 1.9-3. 7 normal Not Available [address], [address], 10/22/2022 05:50:44 10/22/19 23 10/22/2022 COMPR EHENS JAMES METAB OLIC PANEL albumin/glob ulin ratio 1.8 (calc ) 1.0-2. 5 normal Not Available [address], [address], 10/22/2022 05:50:44 10/22/19 23 10/22/2022 COMPR EHENS JAMES METAB OLIC PANEL bilirubin, total 0.6 mg/dL 0.2-1. 2 normal Not Available [address], [address], 10/22/2022 05:50:44 10/22/19 23 10/22/2022 COMPR EHENS JAMES METAB OLIC PANEL alkaline phosphatase 57 U/L 37-153 normal Not Available [address], [address], 10/22/2022 05:50:44 10/22/19 23 10/22/2022 COMPR EHENS JAMES METAB OLIC PANEL AST 15 U/L 10-35 normal Not Available [address], [address], 10/22/2022 05:50:44 10/22/19 23 10/22/2022 COMPR EHENS JAMES METAB OLIC PANEL ALT 10 U/L 6-29 normal Not Available [address] [place], [address], 10/22/2022 05:50:44 10/22/1910/22/2022 HEMOG LOBIN A1C hemoglobin A1C 5.0 %_of_ total _HGB <5.7 normal For the purpo se of brittny rea for the prese nce of diabe eusebio: <5.7% Consi stent with the absen ce of diabe eusebio 5.7-6 .4% Consi stent with incre ased risk for diabe eusebio (pred iabet es) > or =6.5% Consi stent with diabe eusebio This assay resul t is consi stent with a decre ased risk of diabe eusebio. Curre ntly, no conse nsus exist s regar nneka use of hemog lobin A1c for diagn osis of diabe eusebio in child tessy. Accor ding to Ameri can Diabe eusebio Assoc iatio n (ADA) guide lines , hemog lobin A1c <7.0% repre sents optim al contr ol in non-p regna nt diabe tic patie nts. Diffe rent metri cs may apply to speci fic patie nt popul ation s. Stand ards of Medic al Care in Diabe eusebio(A DA). Not Available [facility] [address] [address] [place], [address], 10/22/2022 05:50:45 10/22/19 23 10/22/2022 CBC (INCL UDES DIFF/ PLT) white blood cell count 4.0 thous and/u L 3.8-10 .8 normal Not Available [facility] [address] [address] [place], [address], 10/22/2022 05:50:46 10/22/19 23 10/22/2022 CBC (INCL UDES DIFF/ PLT) red blood cell count 4.01 ian on/uL 3.80-5 .10 normal Not Available [facility] [address] [address] [place], [address], 10/22/2022 05:50:46 03/31/20 23 10/22/2022 CBC (INCL UDES DIFF/ PLT) hemoglobin 12.3 g/dL 11.7-1 5.5 normal Not Available [address], [address], 10/22/2022 05:50:46 10/22/19 23 10/22/2022 CBC (INCL UDES DIFF/ PLT) hematocrit 36.7 % 35.0-4 5.0 normal Not Available [address], [address], 10/22/2022 05:50:46 10/22/19 23 10/22/2022 CBC (INCL UDES DIFF/ PLT) MCV 91.5 fL 80.0-1 00.0 normal Not Available [address], [address], 10/22/2022 05:50:46 10/22/19 23 10/22/2022 CBC (INCL UDES DIFF/ PLT) MCH 30.7 pg 27.0-3 3.0 normal Not Available [address], [address], 10/22/2022 05:50:46 10/22/19 23 10/22/2022 CBC (INCL UDES DIFF/ PLT) MCHC 33.5 g/dL 32.0-3 6.0 normal Not Available [address], [address], 10/22/2022 05:50:46 10/22/19 23 10/22/2022 CBC (INCL UDES DIFF/ PLT) RDW 12.4 % 11.0-1 5.0 normal Not Available [address], [address], 10/22/2022 05:50:46 10/22/19 23 10/22/2022 CBC (INCL UDES DIFF/ PLT) platelet count 155 thous and/u L 140-40 0 normal Not Available [facility] [address], [address], 10/22/2022 05:50:46 10/22/19 23 10/22/2022 CBC (INCL UDES DIFF/ PLT) MPV 12.1 fL 7.5-12 .5 normal Not Available [address], [address], 10/22/2022 05:50:46 10/22/19 23 10/22/2022 CBC (INCL UDES DIFF/ PLT) absolute neutrophils 2320 cells /uL 1500-7 800 normal Not Available [address], [address], 10/22/2022 05:50:46 10/22/19 23 10/22/2022 CBC (INCL UDES DIFF/ PLT) absolute lymphocytes 1152 cells /uL 850-39 00 normal Not Available [address], [address], 10/22/2022 05:50:46 10/22/19 23 10/22/2022 CBC (INCL UDES DIFF/ PLT) absolute monocytes 324 cells /uL 200-95 0 normal Not Available [address], [address], 10/22/2022 05:50:46 10/22/19 23 10/22/2022 CBC (INCL UDES DIFF/ PLT) absolute eosinophils 172 cells /uL 15-500 normal Not Available [facility] [address], [address], 10/22/2022 05:50:46 10/22/19 23 10/22/2022 CBC (INCL UDES DIFF/ PLT) absolute basophils 32 cells /uL 0-200 normal Not Available [facility] [address], [address], 10/22/2022 05:50:46 10/22/19 23 10/22/2022 CBC (INCL UDES DIFF/ PLT) neutrophils 58 % normal Not Available [facility] [address], [address], 10/22/2022 05:50:46 10/22/19 23 10/22/2022 CBC (INCL UDES DIFF/ PLT) lymphocytes 28.8 % normal Not Available [facility] [address], [address], 10/22/2022 05:50:46 10/22/19 23 10/22/2022 CBC (INCL UDES DIFF/ PLT) monocytes 8.1 % normal Not Available [facility] [address], [address], 10/22/2022 05:50:46 10/22/19 23 10/22/2022 CBC (INCL UDES DIFF/ PLT) eosinophils 4.3 % normal Not Available [facility] [address], [address], 10/22/2022 05:50:46 10/22/19 23 10/22/2022 CBC (INCL UDES DIFF/ PLT) basophils 0.8 % normal Not Available [facility] [address], [address], 10/22/2022 05:50:46 10/22/19 23 10/22/2022 URINA LYSIS , COMPL ETE W/REF TIESHA TO CULTU RE color YELLOW yellow normal Not Available [facility] [address], [address], 10/22/2022 05:50:46 10/22/19 23 10/22/2022 URINA LYSIS , COMPL ETE W/REF TIESHA TO CULTU RE appearance CLEAR clear normal Not Available [facility] [address], [address], 10/22/2022 05:50:46 10/22/19 23 10/22/2022 URINA LYSIS , COMPL ETE W/REF TIESHA TO CULTU RE specific gravity 1.009 1.001- 1.035 normal Not Available [address], [address], 10/22/2022 05:50:46 10/22/19 23 10/22/2022 URINA LYSIS , COMPL ETE W/REF TIESHA TO CULTU RE pH 5.5 5.0-8. 0 normal Not Available [address], [address], 10/22/2022 05:50:46 10/22/19 23 10/22/2022 URINA LYSIS , COMPL ETE W/REF TIESHA TO CULTU RE glucose NEGATI VE negati ve normal Not Available [address], [address], 10/22/2022 05:50:46 10/22/19 23 10/22/2022 URINA LYSIS , COMPL ETE W/REF TIESHA TO CULTU RE bilirubin NEGATI VE negati ve normal Not Available [address], [address], 10/22/2022 05:50:46 10/22/19 23 10/22/2022 URINA LYSIS , COMPL ETE W/REF TIESHA TO CULTU RE ketones NEGATI VE negati ve normal Not Available [address], [address], 10/22/2022 05:50:46 10/22/19 23 10/22/2022 URINA LYSIS , COMPL ETE W/REF TIESHA TO CULTU RE occult blood NEGATI VE negati ve normal Not Available [address], [address], 10/22/2022 05:50:46 10/22/19 23 10/22/2022 URINA LYSIS , COMPL ETE W/REF TIESHA TO CULTU RE protein NEGATI VE negati ve normal Not Available [facility] [address] [place], [address], 10/22/2022 05:50:46 10/22/19 23 10/22/2022 URINA LYSIS , COMPL ETE W/REF TIESHA TO CULTU RE nitrite NEGATI VE negati ve normal Not Available [address] [address] [place], [address], 10/22/2022 05:50:46 10/22/19 23 10/22/2022 URINA LYSIS , COMPL ETE W/REF TIESHA TO CULTU RE leukocyte esterase NEGATI VE negati ve normal Not Available [address] [address] [place], [address], 10/22/2022 05:50:46 10/22/19 23 10/22/2022 URINA LYSIS , COMPL ETE W/REF TIESHA TO CULTU RE WBC NONE SEEN /hpf < or = 5 normal Not Available [address] [address] [place], [address], 10/22/2022 05:50:46 10/22/19 23 10/22/2022 URINA LYSIS , COMPL ETE W/REF TIESHA TO CULTU RE RBC NONE SEEN /hpf < or = 2 normal Not Available [address] [address] [place], [address], 10/22/2022 05:50:46 10/22/19 23 10/22/2022 URINA LYSIS , COMPL ETE W/REF TIESHA TO CULTU RE squamous epithelial cells NONE SEEN /hpf < or = 5 normal Not Available [facility] [address] [address] [place], [address], 10/22/2022 05:50:46 10/22/19 23 10/22/2022 URINA LYSIS , COMPL ETE W/REF TIESHA TO CULTU RE bacteria NONE SEEN /hpf none seen normal Not Available [address] [address] [place], [address], 10/22/2022 05:50:46 10/22/19 23 10/22/2022 URINA LYSIS , COMPL ETE W/REF TIESHA TO CULTU RE hyaline cast NONE SEEN /lpf none seen normal Not Available [address], [address], 10/22/2022 05:50:46 10/22/19 23 10/22/2022 URINA LYSIS , COMPL ETE W/REF TIESHA TO CULTU RE note This urine was ann zed for the prese nce of WBC, RBC, bacte jb, casts , and other forme d eleme nts. Only those eleme nts seen were repor brandon. Not Available [address], [address], 10/22/2022 05:50:46 10/22/19 23 10/22/2022 REFLE XIVE URINE CULTU RE reflexive urine culture NO CULTU RE INDIC ATED Not Available [address], [address], 10/22/2022 05:50:48 07/28/19 24 07/31/2023 ALPHA -1-AN TITRY PSIN QN aualm-6-ocms trypsin qn 196 mg/dL 83-199 normal Not Available [address], [address], 07/31/2023 13:35:56 09/25/19 21 09/07/2020 upper endos copy proce dure (EGD) (PROC ) No observ ation record ed. [id number] Not Available 09/21/2022 02:56:47 02/06/20 21 02/05/2021 MAMMbrittny [place] bilat eral No observ ation record ed. [id number] Not Available 09/21/2022 02:56:47 10/19/19 22 10/15/2021 XR, ankle + foot No observ ation record ed. [id number] [facility] (Imaging) [address], [place], [address], 09/21/2022 02:56:47 01/21/20 22 01/20/2022 MAMMO , diagn ostic , digit al, bilat eral No observ ation record ed. [id number] [facility] (Mammography) [address], [place], [address], 09/21/2022 02:56:47 12/22/19 23 12/21/2022 MAMMO , scree álvaro, digit al, bilat eral No observ ation record ed. [email or web address] [facility] [address], [place], [address], 04/11/2023 17:59:29 Result Notes None recorded. Problems Name Problem SNOMED Code Status Onset Date Resolution Date Notes Provider Name and Address Organization Details Recorded Time Mastodynia of bilateral breasts 1846664213974 9109 Active 2021 Not Available [facility] 3 02:48:19 Injury of ankle 125193050 Active Not Available [facility] 3 02:48:20 Pain of left ankle joint 1043867961883 9103 Active 2021 Not Available [facility] 3 02:48:20 Backache 806267119 Active Not Available [facility] 3 02:48:20 Left flank pain 249191338 Active Not Available [facility] 3 02:48:20 Body mass index 25-29 - overweight 501955374 Active Not Available [facility] 3 02:48:20 Abdominal pain 92465705 Active Not Available [facility] 3 02:48:20 Robe thyroiditi s 48817418 Active Not Available [facility] 3 02:48:20 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 217429639 Active 2021 Not Available [facility] 3 02:48:20 Ankle pain 515619790 Active Not Available [facility] 3 02:48:20 Degenerati on of lumbar interverte bral disc 64222824 Active Not Available [facility] 3 02:48:20 Anemia 018998384 Active Not Available [facility] 3 02:48:20 Abnormal findings on diagnostic imaging of urinary organs 728731501 Active Not Available [facility] 3 02:48:20 Adhesion of intestine 63939963 Active Not Available [facility] 3 02:48:20 Left lower quadrant pain 872372230 Active Not Available [facility] 3 02:48:20 Enthesopat hy of hip region 69632623 Active Not Available [facility] 3 02:48:20 Acute pharyngiti s 464134160 Active Not Available [facility] 3 02:48:21 Hypothyroi dism 18509909 Active Not Available [facility] 3 02:48:21 Obese 285570989 Active Not Available [facility] 3 02:48:21 Pain of hip region 44497280 Active Not Available [facility] 3 02:48:21 Hyperlipid emia 44028893 Active 2021 TA Rahman, [place] [facility] 3 11:37:32 Disorder of acromiocla vicular joint 396444961 Active Not Available [facility] 3 02:48:21 Frontal sinusitis 80063772 Active Not Available [facility] 3 02:48:21 Fatigue 04920435 Active Not Available [facility] 3 02:48:21 Notes:COVID-19 pos 08/11/21 Problem Notes None recorded. Procedures Surgical History Date Name Laterality Status Provider Name and Address Organization Details Recorded Time 09/07/19 Date of Last Colonoscopy completed Not Available [facility] 09/21/2022 02:42:50 09/07/19 Colonoscopy completed Not Available [facility] 09/22/19 02:42:54 excision of squamous cell carcinoma completed Not Available [facility] 09/21/2022 02:42:54 Hysterectomy completed Not Available [facility] 09/21/2022 02:42:54 Gallbladder Surgery completed Not Available [facility] 09/21/2022 02:42:54 other completed Not Available [facility] 07/2022 02:42:54 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 Procedure Notes None recorded. Medical Equipment None Reported. Allergies Allergen ID Allergen Name Allergen Category Reaction Reaction Severity Criticality Documentation Date Start Date Code Code System Note Provider Name and Address Organization Details Recorded Time 4387 Ceftin medicatio n itching Not available Not available 09/21/2022 81472 6 RxNorm Not Available [facility] 02:56:16 Medications Name Sig Start Date Stop Date Status Note LastModified by Organization Details LastModified Time otc antigent 1-pack kit active Not Available Not Available Not Available tretinoin 0.1 % topical cream APPLY TO FACE AT BEDTIME 10/12 completed Not Available Not Available Not Available [place] Thyroid 60 mg tablet TAKE ONE TABLET BY MOUTH IN THE AFTERNOO N 07/26 completed Not Available Not Available Not Available buspirone 5 mg tablet Take 1 tablet twice a day by oral route. active Not Available Not Available No t Available Augmentin 875 mg-125 mg tablet Take 1 tablet every 12 hours by oral route. active Not Available Not Available No t Available cefuroxim e axetil 250 mg tablet TAKE 2 TABLETS BY MOUTH THE NIGHT BEFORE SURGERY THEN 1 TAB TWICE DAILY 11/15 completed Not Available Not Available Not Available tretinoin 0.01 % topical gel APPLY TO THE AFFECTED AREA(S) BY TOPICAL ROUTE ONCE DAILY AT BEDTIME 08/09 completed Not Available Not Available Not Available BD Insulin Syringe 1 mL 25 x 1 USE TO INJECT TESTOSTE REBECCA EVERY 3-4 WEEKS active Not Available Not Available No t Available azithromy raquel 250 mg tablet TAKE 2 TABLETS (500 MG) BY ORAL ROUTE ONCE DAILY FOR 1 DAY THEN 1 TABLET (250 MG) BY ORAL ROUTE ONCE DAILY FOR 4 DAYS active Not Available Not Available No t Available [place] Thyroid 180 mg tablet TAKE 1/2 TABLET BY MOUTH TWICE DAILY 07/26 completed Not Available Not Available Not Available levothyro xine 300 mcg tablet TAKE 1 TABLET BY MOUTH EVERY DAY active Not Available Not Available No t Available liothyron ine 25 mcg tablet TAKE 1/2 TABLET BY MOUTH TWICE A DAY active Not Available Not Available No t Available valacyclo vir 1 gram tablet TAKE 2 TABLETS BY MOUTH TWICE A DAY NEEDED FOR FLARE UPS active Not Available Not Available No t Available clarithro mycin 500 mg tablet active Not Available Not Available No t Available fluocinon lucius 0.05 % topical gel 03/23 completed Not Available Not Available Not Available meloxicam 15 mg tablet active Not Available Not Available Not Available phentermi ne 15 mg capsule TAKE 1 CAPSULE BY MOUTH EVERY DAY IN THE MORNING 11/18 completed Not Available Not Available Not Available phentermi ne 37.5 mg tablet TAKE 1 TABLET BY MOUTH EVERY DAY 10/03 completed Not Available Not Available Not Available sulfaceta mide sodium (acne) 10 % lotion (suspensi on) uses everyday 07/19 completed Not Available Not Available Not Available tretinoin 0.05 % topical cream APPLY TO FACE EVERY DAY AT BEDTIME active Not Available Not Available No t Available estradiol 0.05 mg/24 hr semiweekl y transderm al patch APPLY 1 PATCH TRANSDER ANUEL 2 TIMES PER WEEK active Not Available Not Available No t Available liothyron ine 5 mcg tablet TAKE 1 TABLET BY MOUTH EVERY DAY active Not Available Not Available No t Available tramadol 50 mg tablet Take 1 tablet every 6 hours by oral route as needed. active manually fax to pharmacy . Not Available Not Available Not Available oxycodone -acetamin ophen 5 mg-325 mg tablet TAKE 1 TABLET BY MOUTH EVERY 4 HOURS NEEDED FOR PAIN 11/20 completed Not Available Not Available Not Available BD Regular Bevel Maxwell 18 gauge x 1 USE TO DRAW UP TESTOSTE REBECCA EVERY 3-4 WEEKS active Not Available Not Available No t Available amoxicill in 875 mg tablet Take 1 tablet every 12 hours by oral route. active Not Available Not Available No t Available methocarb dara 750 mg tablet Take 1 tablet every day by oral route at bedtime. 03/23 completed Not Available Not Available Not Available dexametha sone 1 mg tablet active Not Available Not Available Not Available colesevel am 625 mg tablet TAKE 1 TABLET BY MOUTH EVERY DAY active Not Available Not Available No t Available hyoscyami ne sulfate 0.125 mg tablet Take 1 tablet every 4-6 hours by oral route as needed. active Not Available Not Available No t Available levothyro xine 125 mcg tablet 10/03 completed Not Available Not Available Not Available liothyron ine 50 mcg tablet TAKE 1/2 TAB TWICE DAILY 07/10 completed Not Available Not Available Not Available fluoxetin e 10 mg capsule TAKE 1 CAPSULE BY MOUTH EVERY DAY 10/12 completed Not Available Not Available Not Available levothyro xine 200 mcg tablet Take 1 tablet every day by oral route for 90 days. active Not Available Not Available No t Available topiramat e 200 mg tablet TAKE 1 TABLET BY MOUTH EVERY DAY 11/19 completed Not Available Not Available Not Available testoster one cypionate 200 mg/mL intramusc ular oil INJECT 0.125ML INTO MUSCLE EVERY 3 - 4 WEEKS active Not Available Not Available No t Available ibuprofen 600 mg tablet Take by oral route for 13 days. active Not Available Not Available No t Available cefuroxim e axetil 500 mg tablet active Not Available Not Available Not Available levofloxa raquel 500 mg tablet Take 1 tablet every 24 hours by oral route. active Not Available Not Available No t Available gentamici n 40 mg/mL injection solution active Not Available Not Available Not Available methylpre dnisolone 4 mg tablets in a dose pack Take by oral route as directed at start of day active Not Available Not Available No t Available BD Luer-Sunita Syringe 3 mL 22 gauge x 1 10/12 completed Not Available Not Available Not Available topiramat e 100 mg tablet TAKE 1 TABLET BY MOUTH EVERY DAY active Not Available Not Available No t Available fluoxetin e 20 mg capsule 07/20 completed Not Available Not Available Not Available fluticaso ne propionat e 50 mcg/actua tion nasal spray,daniel pension SPRAY 2 SPRAYS INTO EACH NOSTRIL EVERY DAY active Not Available Not Available No t Available itraconaz ole 100 mg capsule TAKE 2 CAPSULES BY MOUTH EVERY DAY active Not Available Not Available No t Available BD Luer-Sunita Syringe 3 mL 22 x 1 2 USE DIRECTED 10/12 completed Not Available Not Available Not Available naproxen 500 mg tablet TAKE 1 TABLET BY MOUTH TWICE A DAY 11/19 completed Not Available Not Available Not Available diazepam 5 mg tablet TAKE 1 TABLET BY MOUTH 3 TIMES A DAY NEEDED FOR MUCLE SPASMS 11/20 completed Not Available Not Available Not Available progester one micronize d 100 mg capsule TAKE 1 TO 2 CAPSULES BY MOUTH AT BEDTIME active Not Available Not Available No t Available clindamyc in phosphate 1 % topical solution Apply by topical route as needed for 30 days. active Not Available Not Available No t Available bupropion HCl XL 300 mg 24 hr tablet, extended release Take 1 tablet every day by oral route. 07/26 completed Not Available Not Available Not Available bupropion HCl XL 150 mg 24 hr tablet, extended release TAKE 1 TABLET BY MOUTH EVERY DAY 04/11 completed Not Available Not Available Not Available hydrocort isone butyrate- emollient 0.1 % topical cream 05/31 completed Not Available Not Available Not Available duloxetin e 30 mg capsule,d elayed release active Not Available Not Available Not Available Boostrix Tdap 2.5 Lf unit-8 mcg-5 Lf/0.5 mL intramusc ular syringe active Not Available Not Available Not Available metronida zole 1 % topical gel 05/31 completed Not Available Not Available Not Available tramadol 10/12 completed Not Available Not Available Not Available Synthroid takes one tab daily 2014 active Not Available Not Available Not Avai lable ProAir HFA 90 mcg/actua tion aerosol inhaler active Not Available Not Available Not Available [facility] roid 130 mg tablet TAKE 1 & 1/2 TABLETS BY MOUTH 5 DAYS A WEEK AND TAKE 2 TABLETS BY MOUTH 2 DAYS A WEEK active Not Available Not Available No t Available [facility] roid 65 mg tablet 05/31 completed Not Available Not Available Not Available bimatopro st 0.03 % drops with applicato r, eyelash base APPLY TO LASHLINE NIGHTLY active Not Available Not Available No t Available GaviLyte- G 236 gram-22.7 4 gram-6.74 gram-5.86 gram oral solution USE DIRECTED 10/12 completed Not Available Not Available Not Available Tirosint 125 mcg capsule TAKE ONE Capsule BY MOUTH EVERY MORNING BEFORE BREAKFAS T active Not Available Not Available No t Available Tirosint 150 mcg capsule Take 1 capsule every day by oral route before meals. 2020 active Not Available Not Available Not Avai lable Suprep Bowel Prep Kit 17.5 gram-3.13 gram-1.6 gram oral solution USE DIRECTED 08/09 completed Not Available Not Available Not Available Linzess 145 mcg capsule 11/19 completed Not Available Not Available Not Available Contrave 8 mg-90 mg tablet,ex tended release take 2 tablets po bid. active pt takes tramadol PRN only. Not Available Not Available Not Available Tirosint 175 mcg capsule TAKE 1 CAPSULE BY MOUTH RESOURCE FORESTER BEFORE BREAKFAS T active Not Available Not Available No t Available Flowflex COVID-19 Antigen Home Test kit FOLLOW INSTRUCT IONS INCLUDED WITH THE PACKAGE. active Not Available Not Available No t Available Mounjaro 5 mg/0.5 mL subcutane ous pen injector active Not Available Not Available Not Available Vitals Date Recorded Body mass index (BMI) Body height Oxygen saturation Oxygen saturation in Arterial blood by Pulse oximetry Heart rate Body temperature Body weight Systolic blood pressure Diastolic blood pressure Provider Name and Address Organization Details Last Updated DateTime 2 27.2 kg/m2 172.72 cm 96 % 96 % 80 /min 96.6 [degF] 18581.0 3 g 110 mm[Hg] 70 mm[Hg] Not Available [facility] 3 02:43:44 Date Recorded Body mass index (BMI) Body height Oxygen saturation Oxygen saturation in Arterial blood by Pulse oximetry Heart rate Respiratory rate Body temperature Body weight Systolic blood pressure Diastolic blood pressure Provider Name and Address Organization Details Last Updated DateTime 1 26.5 kg/m2 172.72 cm 98 % 98 % 80 /min 16 /min 97.6 [degF] 31909.0 7 g 116 mm[Hg] 64 mm[Hg] Not Available [facility] 3 02:43:44 Date Recorded Systolic blood pressure Diastolic blood pressure Provider Name and Address Organization Details Last Updated DateTime 10/17/2022 118 mm[Hg] 70 mm[Hg] YUDY Chung [address] [facility], [facility] [address], [place], [address], [place] - [facility] [employer] [facility] 10/17/2022 16:37:53 Date Recorded Body height Body temperature Body mass index (BMI) Body weight Heart rate Oxygen saturation Oxygen saturation in Arterial blood by Pulse oximetry Systolic blood pressure Diastolic blood pressure Provider Name and Address Organization Details Last Updated DateTime 3 172.72 cm 97.6 [degF] 24.3 kg/m2 99764.7 8 g 79 /min 98 % 98 % 114 mm[Hg] 72 mm[Hg] Janee Galvez RN [facility] [employer] [facility] 3 16:24:28 Date Recorded Body mass index (BMI) Body height Oxygen saturation Oxygen saturation in Arterial blood by Pulse oximetry Heart rate Respiratory rate Body temperature Body weight Systolic blood pressure Diastolic blood pressure Provider Name and Address Organization Details Last Updated DateTime 2 26.5 kg/m2 172.72 cm 97 % 97 % 75 /min 16 /min 97.9 [degF] 70278.7 9 g 118 mm[Hg] 78 mm[Hg] Not Available [facility] 3 02:43:45 Date Recorded Body height Oxygen saturation Oxygen saturation in Arterial blood by Pulse oximetry Heart rate Respiratory rate Body temperature Systolic blood pressure Diastolic blood pressure Provider Name and Address Organization Details Last Updated DateTime 2 172.72 cm 98 % 98 % 87 /min 16 /min 97.6 [degF] 118 mm[Hg] 64 mm[Hg] Not Available [facility] 3 02:43:45 Social History Question Answer Notes LastModified by Organizat ion Details LastModified Time Tobacco Smoking Status Never Smoker Janee Galvez RN [facility], [facility] [employer] 10/17/2022 16:20:25 What Is Your Level Of Caffeine Consumption? Moderate [id number] Information not available 09/21/2022 How Much Tobacco Do You Chew? None [id number] Information not available 09/21/2022 In The 14 Days Before Symptom Onset, Have You Had Close Contact With A Laboratory-confirm ed COVID-19 While That Case Was Ill? No [email or web address] Information n ot available 10/17/2022 In The 14 Days Before Symptom Onset, Have You Had Close Contact With A Person Who Is Under Investigation For COVID-19 While That Person Was Ill? No [email or web address] Information not available 10/17/2022 What Type Of Diet Are You Following? REGULAR [id number] Information not available 09/21/2022 Which Illicit Or Recreational Drugs Have You Used? None [email or web address] Information not available 10/17/2022 Have There Been Any Changes To Your Family Or Social Situation? No [email or web address] Information no t available 10/17/2022 Do You Use Insect Repellent Routinely? No [email or web address] Information not available 10/17/2022 What Was The Date Of Your Most Recent Tobacco Screening? 10/12/2020 [email or web address] Information not available 10/17/2022 What Is Your Relationship Status? [id number] Information not available 09/21/2022 Do You Use Your Seat Belt Or Car Seat Routinely? Yes [email or web address] Information not available 10/17/2022 Do You Have Smoke And Carbon Monoxide Detectors In Your Home? Yes Information not available 10/17/2022 How Much Tobacco Do You Smoke? No [id number] Information not available 09/21/2022 Do You Use Sunscreen Routinely? Yes [email or web address] Information not available 10/17/2022 Have You Recently Traveled Abroad? No [email or web address] Information not available 10/17/2022 Do You Have Any Dietary Restrictions? No [email or web address] Information not available 10/17/2022 Sex: Unknown Functional Status Question Answer Note LastModified by Organizat ion Details LastModified Time Do you use any illicit or recreational drugs? No [email or web address] Information not available 10/17/2022 Do you or have you ever used any other forms of tobacco or nicotine? No [email or web address] Information not available 10/17/2022 What is your level of alcohol consumption? Occasional [id number] Information not available 09/21/2022 Do you or have you ever used smokeless tobacco? Never used smokeless tobacco MIGRATION.[id number] Information not available 09/21/2022 Are you currently employed? 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 Never used electronic cigarettes [email or web address] Information not available 10/17/2022 What is your exercise level? Occasional [id number] Information not available 09/21/2022 Mental Status None recorded. Family History Relationship Description Onset Age of this Age Resolved Age Notes LastModified by Organization Details LastModified Time Mother Arthritis [id number] Not available 09/21/2022 02:42:55 Father Malignant neoplasm of skin [id number] Not available 09/21/2022 02:42:55 Father Alzheimer's disease 81 [id number] Not available 09/21/2022 02:42:55 Medical History Condition Response HEADACHES/MIGRAINES Y URINARY/BLADDER/KIDNEY PROBLEMS Y Gynecological History Statement/Question Response Abnormal Pap N Date of Last Mammogram 02/07/2020 Date of Last Colonoscopy 09/07/2020 Sexually Active? Y Menses Monthly N Date of Last Pap 07/24/2013 Current Control Method Hysterectom y Obstetrics History GPAL:G 0 P 0 0 0 0 Immunizations Vaccine Type Date Status Note Provider Nam e and Address Organization Details Recorded Time Tdap 09/15/2019 completed Not Available [employer] 09/21/2022 02:56:03 Past Encounters Encounter ID Performer Location Encounter Start Date Encounter Closed Date Diagnosis/Indication Diagnosis SNOMED-CT Code Diagnosis ICD10 Code Diagnosis Note [id number] YUDY Chung [facility] [place] [address] [place] [address] 10/12/2020 00:00:00 10/13/2020 14:45:[id number] [facility] [place] [address] [place] [address] 08/09/2021 00:00:00 08/23/2021 10:04:36 [id number] Calixto Vásquez MD [facility] [place] [address] [place] [address] 11/19/2021 00:00:00 11/19/2021 17:01:39 [id number] Calixto Vásquez MD 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 due for TFTs and will copy them on results for her appt in december. Cholesterol screening 27 6352855 Z13.220 fasting lipids due Diabetes m ellitus screening 881322683 Z13.1 screening a1c due Long-term drug therapy 639892798 Z79.899 routine CBC, CMP, UA due Health Concerns Section Related Observation LastModified by Organization Detai ls LastModified Time None Recorded Concern Status LastModified by Organization Details LastModified Time None Recorded Advance Directives Directive None Recorded Payers Encounter Date Sequence Insurance Name Policy Number Policy Maldonado Covered Member ID Maldonado Member ID Guarantor Name 10/17/2022 1 [employer] [id number] Jay Curry [id number] Juju Curry Notes Date Note Type Note Provider Name and Address Organization Details Recorded Time 10/13/19 21 text/ht ml Generic HPI TemplateReported bypatient.Notes:Pt presents today for yearly wellness exam. States she's doing well. Reports she completed colonoscopy on [address] Carlos office. No concerns or complaints to report. Not Available [employer] 10/13/2020 14:45:39 08/09/19 22 text/ht ml General PainReported bypatient.Location:pain radiating to the ankle left Severity:same;pain level without meds 2/10;interference with work Timing:intermittent Quality:sharp Duration:present for 1-6 months Alleviating Factors:rest Aggravating Factors:movement/positioning Not Available [employer] 08/23/2021 10:04:36 11/20/19 22 text/ht ml HypothyroidismReported bypatient.Quality:not changing Duration:constant Onset/Timing:still present Context/Risk:normal thyroid levels; no history of head or neck radiation during childhood; no history of thyroid disease; no history of hypothyroidism; no history of hyperthyroidism; no excess iron exposure Modifying Factors:medication Exercisegets exercise Associated Symptoms:no cold intolerance; no heat intolerance; no weight loss; no weight gain; no double vision; no dry eyes; no hoarseness; no difficulty swallowing; no neck masses; no deepening of the voice; no fast heart rate; no increased blood pressure; no palpitations; no chest pain; no chest tightess or pressure; no constipation; no diarrhea; no vomiting; no decreased appetite; no loose stools; no irregular menstrual periods; no excessive sweating; no joint pain; no numbness; no tingling of the hands or feet; no dry skin; no tremor; no nervousness; no anxiety; no depression; no fatigue; no sleep difficulties; no skin changes; no hair changes Not Available [employer] 11/19/2021 17:01:39 01/15/20 22 text/ht ml Generic HPI TemplateReported bypatient.Location:R breast Severity:sitting -09/30 Onset/Timing:Noticed it yesterday morning Aggravating factors:bumping/ hitting it Alleviating factors:resting Associated Symptoms:lump possiblyNotes:Pain in breast Not Available [facility] 01/16/2022 12:32:17 10/18/19 23 text/ht ml HyperlipidemiaReported bypatient.Duration:chronic Control:usually well controlled; improving; at goal Compliance:compliant; compliant with diet; exercises Complications:no coronary artery disease; no peripheral artery disease; no cardiovascular diseaseHypothyroidismReported bypatient.Onset/Timing:better Context/Risk:normal thyroid levels; no history of head or neck radiation during childhood; no history of thyroid disease; no history of hypothyroidism; no history of hyperthyroidism; no excess iron exposure Exercisegets exercise Associated Symptoms:no cold intolerance; no heat intolerance; no weight loss; no weight gain; no double vision; no dry eyes; no hoarseness; no difficulty swallowing; no neck masses; no deepening of the voice; no fast heart rate; no increased blood pressure; no palpitations; no chest pain; no chest tightess or pressure; no constipation; no diarrhea; no vomiting; no decreased appetite; no loose stools; no irregular menstrual periods; no excessive sweating; no joint pain; no numbness; no tingling of the hands or feet; no dry skin; no tremor; no nervousness; no anxiety; no depression; no fatigue; no sleep difficulties; no skin changes; no hair changes YUDY Chung [address], [place], [address], [place] [facility] 10/17/2022 23:14:18 OBGyn Episode No OBEpisode recorded.
--- OUTSIDE RECORDS SUMMARY | 2024-12-19 14:16 | XMS_ITS | Encounter Summary ---
Author Organization [facility] Address [address] [facility] [place] [address] Care Team Providers Care Relocation Services Specialist Name Role Phone Janet Melara Primary Care Pr ovider Encounter Details Date Type Department Care Team (Late st Contact Info) Description 08/19/2019 Lab Requisition [facility] Care DermPath Lab [address] [facility] [place] [phone] Parul Weller MD [address] [facility] [address] [place] [address] Social History Tobacco Use Types Packs/Day Years Used Date Smoking Tobacco: Never Smokeless Tobacco: Never Alcohol Use Standard Drinks/Week Comments Yes 0 (1 standard drink = 0.6 oz pur e alcohol) social Comments No Sex and Gender Information Value Date Recorded Sex Assigned at Not on file Legal Sex Female 10:02 AM NURSE STAFF Gender Identity Not on file Sexual Orientation Not on file documented as of this encounter Plan of Treatment Not on file documented as of this encounter Procedures Procedure Name Priority Date/Time Associated Diagnosis Comments DERMATOPATHOLOGY Routine 08/16/2019 12:0 0 AM NURSE STAFF documented in this encounter Results * DERMATOPATHOLOGY (08/16/2019 12:00 AM NURSE STAFF) Case Report Dermatopathology Report Case: [id number] Authorizing Provider: Parul Weller MD Collected: 08/16/2019 12:00 AM Ordering Location: [facility] DermPath Lab Received: 08/19/2019 07:03 AM Pathologist: Yesica Campbell MD Specimen: Skin, mid chest 0 11:24 AM [facility] DERMATOPATHOLOGY LABORATORY Final Diagnosis Specimen A. SKIN, mid chest: DERMAL SCAR RESIDUAL SQUAMOUS CELL CARCINOMA NOT IDENTIFIED (L90.5) 0 11:24 AM [facility] DERMATOPATHOLOGY LABORATORY at 1124 NURSE STAFF Clinical History R/O SCCIS, biopsy proven. 0 11:24 AM [facility] DERMATOPATHOLOGY LABORATORY Gross Description Specimen A: Received is one formalin filled container labeled with the patient's name and designated mid chest.The specimen consists of an ellipse measuring 32h44p1mi and is oriented with the notch at the 3 o'clock position, not labeled on the requisition. The 12 to 6 o'clock margin is inked green. The 6 o'clock to 12 o'clock margin is inked black. The 12 o'clock tip is submitted in cassette 1. The 6 o'clock tip is submitted in cassette 2. The remainder of the ellipse is serially sectioned and submitted in cassettes 3-4. Jar 0. 0 11:24 AM [facility] DERMATOPATHOLOGY LABORATORY Microscopic Description Specimen A. SKIN, mid chest: There are fibroblasts and collagen bundles oriented parallel to the skin surface. There are elongated blood vessels, some of which are oriented perpendicular to the skin surface. No residual squamous cell carcinoma is identified. 0 11:24 AM [facility] DERMATOPATHOLOGY LABORATORY Disclaimer An external and internal positive and negative controls are appropriate for the histochemical, immunohistochemical and immunofluorescence stain(s) in this case (if any), except where stated explicitly. The performance characteristics of the stain(s) cited in this report were developed and its performance characteristic determined by the Dermatopathology Laboratory at [facility], directed by Dr. Shreyas Campbell. These tests need not be, and therefore are not, approved by the [place] Food and Drug Administration. The tests are used for clinical purposes. Billing Codes Specimen Charges Stain Charges 60668 1 0 11:24 AM [facility] DERMATOPATHOLOGY LABORATORY Embedded Images 0 11:24 AM [facility] DERMATOPATHOLOGY LABORATORY Pathology/Cytolog y TISSUE SPECIMEN FROM SKIN / Unknown 08/16/2019 08/19/2019 7:03 AM NURSE STAFF Parul Weller MD LAB - PATHOLOGY/CYTOLOGY ORD ERABLES Final Result DERMATOPATHOLOGY LABORATORY [facility] - Department of Dermatology [address] [place] [address], 5th Floor Lab [address] [phone] documented in this encounter Visit Diagnoses Not on filedocumented in this encounter Care Teams Relocation Services Specialist Relationship Specialty Start Date End Date Janet Melara PA [address] [place] [address] PCP - General Physician Deicer Kit Assembler 05/29/15 documented as of this encounter
--- OUTSIDE RECORDS SUMMARY | 2024-12-19 14:16 | XMS_ITS | Encounter Summary ---
Author Organization [facility] Address [address] [place] [address] Care Team Providers Care International Logistics Coordinator Name Role Phone Janet Melara Primary Care Pr ovider Encounter Details Date Type Department Care Team (Late st Contact Info) Description 01/07/2020 Lab Requisition [facility] Care DermPath Lab [address] [facility] [place] [address] Parul Weller MD [address] [facility] [address] [place] [address] Social History Tobacco Use Types Packs/Day Years Used Date Smoking Tobacco: Never Smokeless Tobacco: Never Alcohol Use Standard Drinks/Week Comments Yes 0 (1 standard drink = 0.6 oz pur e alcohol) social Comments No Sex and Gender Information Value Date Recorded Sex Assigned at Not on file Legal Sex Female 10:02 AM RHEUMATOLOGY NURSE Gender Identity Not on file Sexual Orientation Not on file documented as of this encounter Plan of Treatment Not on file documented as of this encounter Procedures Procedure Name Priority Date/Time Associated Diagnosis Comments DERMATOPATHOLOGY Routine 01/06/2020 12:0 0 AM CDT documented in this encounter Results * DERMATOPATHOLOGY (01/06/2020 12:00 AM CDT) Case Report Dermatopathology Report Case: [id number] Authorizing Provider: Parul Weller MD Collected: 01/06/2020 12:00 AM Ordering Location: [facility] DermPath Lab Received: 01/07/2020 07:17 AM Pathologist: Neeta Delcid MD Specimen: Skin, right ala 0 12:33 PM CDT DERMATOPATHOLOGY LABORATORY Final Diagnosis Specimen A. SKIN, right ala: ANGIOFIBROMA (FIBROUS PAPULE), SUGGESTIVE OF (D21.0) (see microscopic description and comment) 0 12:33 PM CDT DERMATOPATHOLOGY LABORATORY at 1233 CDT Clinical History Bleeding, pink papule 0 12:33 PM CDT DERMATOPATHOLOGY LABORATORY Gross Description Specimen A: Received is one formalin filled container labeled with the patient's name and designated right ala. The specimen consists of a shave biopsy measuring 3x2x1 mm. Jar 0. 0 12:33 PM CDT DERMATOPATHOLOGY LABORATORY Microscopic Description Specimen A. SKIN, right ala: This dome-shaped lesion contains superficial portions of dilated blood vessels, coarse collagen bundles, and stellate fibroblasts. Additional deeper sections were obtained and reviewed. COMMENT: Given the superficial nature of the biopsy specimen, a deeper dermal process cannot be excluded. 0 12:33 PM CDT DERMATOPATHOLOGY LABORATORY Disclaimer An external and internal positive and negative controls are appropriate for the histochemical, immunohistochemical and immunofluorescence stain(s) in this case (if any), except where stated explicitly. The performance characteristics of the stain(s) cited in this report were developed and its performance characteristic determined by the Dermatopathology Laboratory at [facility], directed by Dr. Shreyas Campbell. These tests need not be, and therefore are not, approved by the [place] Food and Drug Administration. The tests are used for clinical purposes. Billing Codes Specimen Charges Stain Charges 53181 1 0 12:33 PM CDT DERMATOPATHOLOGY LABORATORY Embedded Images 0 12:33 PM CDT DERMATOPATHOLOGY LABORATORY Pathology/Cytolog y TISSUE SPECIMEN FROM SKIN / Unknown 01/06/2020 01/07/2020 7:17 AM CDT us Parul Weller MD LAB - PATHOLOGY/CYTOLOGY ORD ERABLES Final Result DERMATOPATHOLOGY LABORATORY [facility] - Department of Dermatology [facility]/[address] [phone] documented in this encounter Visit Diagnoses Not on filedocumented in this encounter Care Teams International Logistics Coordinator Relationship Specialty Start Date End Date Janet Melara PA [address] [place] [address] PCP - General Physician Pipe Coverer Helper 05/29/15 documented as of this encounter
--- OUTSIDE RECORDS SUMMARY | 2024-12-19 14:16 | XMS_ITS | Encounter Summary ---
Author Organization [facility] Address [address] [place] [address] Care Team Providers Care Molding Process Technician Name Role Phone Janet Melara Primary Care Pr ovider Encounter Details Date Type Department Care Team (Late st Contact Info) Description 01/17/2020 Lab Requisition [facility] Care DermPath Lab [address] [place] [id number] Parul Weller MD [address] [facility] [address] [place] [address] Social History Tobacco Use Types Packs/Day Years Used Date Smoking Tobacco: Never Smokeless Tobacco: Never Alcohol Use Standard Drinks/Week Comments Yes 0 (1 standard drink = 0.6 oz pur e alcohol) social Comments No Sex and Gender Information Value Date Recorded Sex Assigned at Not on file Legal Sex Female 10:02 AM SUPERVISORY CLERK Gender Identity Not on file Sexual Orientation Not on file documented as of this encounter Plan of Treatment Not on file documented as of this encounter Procedures Procedure Name Priority Date/Time Associated Diagnosis Comments DERMATOPATHOLOGY Routine 01/16/2020 12:0 0 AM CDT documented in this encounter Results * DERMATOPATHOLOGY (01/16/2020 12:00 AM CDT) Case Report Dermatopathology Report Case: [id number] Authorizing Provider: Parul Weller MD Collected: 01/16/2020 12:00 AM Ordering Location: [facility] DermPath Lab Received: 01/17/2020 09:49 AM Pathologist: Neeta Delcid MD Specimen: Skin, left shoulder 0 3:05 PM CDT DERMATOPATHOLOGY LABORATORY Final Diagnosis Specimen A. SKIN, left shoulder: BENIGN VERRUCOUS KERATOSIS, IMPETIGINIZED (L82.1) EPIDERMAL NECROSIS SUGGESTIVE OF EXCORIATION (L98.499) 0 3:05 PM CDT DERMATOPATHOLOGY LABORATORY at 1505 CDT Clinical History R/O bite vs NMSC 0 3:05 PM CDT DERMATOPATHOLOGY LABORATORY Gross Description Specimen A: Received is one formalin filled container labeled with the patient's name and designated left shoulder. The specimen consists of a shave biopsy measuring 6x5x1 mm. Jar 0. 0 3:05 PM CDT DERMATOPATHOLOGY LABORATORY Microscopic Description Specimen A. SKIN, left shoulder: Sections show hyperkeratosis, papillomatosis, hypergranulosis, and acanthosis. These histological findings can be seen in a verruca vulgaris or a seborrheic keratosis. The epidermis is focally necrotic and covered with a scale-crust. There is fibrin at the base. There are aggregates of bacteria in the stratum corneum. 0 3:05 PM CDT DERMATOPATHOLOGY LABORATORY Disclaimer An external and internal positive and negative controls are appropriate for the histochemical, immunohistochemical and immunofluorescence stain(s) in this case (if any), except where stated explicitly. The performance characteristics of the stain(s) cited in this report were developed and its performance characteristic determined by the Dermatopathology Laboratory at [facility], directed by Dr. Shreyas Campbell. These tests need not be, and therefore are not, approved by the [place] Food and Drug Administration. The tests are used for clinical purposes. Billing Codes Specimen Charges Stain Charges 87570 1 0 3:05 PM CDT DERMATOPATHOLOGY LABORATORY Embedded Images 0 3:05 PM CDT DERMATOPATHOLOGY LABORATORY Pathology/Cytolog y TISSUE SPECIMEN FROM SKIN / Unknown 01/16/2020 01/17/2020 9:49 AM CDT us Parul Weller MD LAB - PATHOLOGY/CYTOLOGY ORD ERABLES Final Result DERMATOPATHOLOGY LABORATORY [facility] - Department of Dermatology [facility]/[address] [phone] documented in this encounter Visit Diagnoses Not on filedocumented in this encounter Care Teams Molding Process Technician Relationship Specialty Start Date End Date Janet Melara PA [address] [place] [address] PCP - General Physician Commercial Correspondent 05/29/15 documented as of this encounter
--- OUTSIDE RECORDS SUMMARY | 2024-12-19 14:16 | XMS_ITS | Encounter Summary ---
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 Name Role Phone Janet Melara Primary Care Pr ovider Encounter Details Date Type Department Care Team (Late st Contact Info) Description 12/21/2022 Lab Requisition [facility] - DermPath Lab [address] [facility] [place] [address] Annette Farrell DO [address] [facility] [address] [place] [address] Social History Tobacco Use Types Packs/Day Years Used Date Smoking Tobacco: Never Smokeless Tobacco: Never Alcohol Use Standard Drinks/Week Comments Yes 0 (1 standard drink = 0.6 oz pur e alcohol) social Comments No Sex and Gender Information Value Date Recorded Sex Assigned at Not on file 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 Gender Identity Not on file Sexual Orientation Not on file documented as of this encounter Plan of Treatment Not on file documented as of this encounter Procedures Procedure Name Priority Date/Time Associated Diagnosis Comments DERMATOPATHOLOGY Routine 12/21/2022 2:48 PM CDT documented in this encounter Results * DERMATOPATHOLOGY (12/21/2022 2:48 PM CDT) Case Report Dermatopathology Report Case: [id number] Authorizing Provider: Annette Farrell DO Collected: 12/21/2022 02:48 PM Ordering Location: [facility] DermPath Lab Received: 12/22/2022 01:25 PM Pathologist: Yesica Campbell MD Specimen: Skin, right medial chest 3 11:34 AM CDT DERMATOPATHOLOGY LABORATORY Final Diagnosis Specimen A. SKIN, right medial chest: LICHEN PLANUS-LIKE KERATOSIS (BENIGN LICHENOID KERATOSIS) (L82.1) 3 11:34 AM CDT DERMATOPATHOLOGY LABORATORY at 1134 CDT Clinical History LPLK R/O NMSC 3 11:34 AM CDT DERMATOPATHOLOGY LABORATORY Gross Description Specimen A: Received is one formalin filled container labeled with the patient's name and designated right medial chest. The specimen consists of a shave biopsy measuring 5x5x1 mm. Jar 0. 3 11:34 AM CDT DERMATOPATHOLOGY LABORATORY Microscopic Description Specimen A. SKIN, right medial chest: The epidermis is mildly acanthotic. There is a lichenoid infiltrate with vacuolar changes of basilar keratinocytes and scattered necrotic keratinocytes. 3 11:34 AM CDT DERMATOPATHOLOGY LABORATORY Disclaimer An external and [...] purposes. Billing Codes Specimen Charges Stain Charges 41069 1 3 11:34 AM CDT DERMATOPATHOLOGY LABORATORY Embedded Images 3 11:34 AM CDT DERMATOPATHOLOGY LABORATORY Pathology/Cytolo gy TISSUE SPECIMEN FROM SKIN / Unknown 12/21/2022 2:48 PM CDT 12/22/2022 1:25 PM CDT us Annette Farrell DO LAB - PATHOLOGY/CYTOLOGY ORDERABLES Final Result DERMATOPATHOLOGY LABORATORY [facility] - Department of Dermatology [facility] [address] [facility] [phone] documented in this encounter Visit Diagnoses Not on filedocumented in this encounter Care Teams Cleaning Laborer Relationship Specialty Start Date End Date Janet Mleara PA [address] [place] [phone] PCP - General Physician Rackman 05/29/15 documented as of this encounter
== END 2024-12-19 14:12 | disposition home or self-care (01) ==
LOC: ANHIMG 14:14
PROVIDERS: PCP Physician Assistant; Visit Provider Physician Assistant
DX: Z12.31 Encounter for screening mammogram for malignant neoplasm of breast (principal); R92.8 Other abnormal and inconclusive findings on diagnostic imaging of breast
CPT/HCPCS: 77063; 77067

== ENCOUNTER 2025-02-14 08:42 | Outpatient (CLI) | payer BC, SELFPAY ==
--- NOTE | ~2025-02-14 | XR_ITS ---
XR_[id number]_CR 02/14/2025 10:10 Indication: Upper extremity numbness Procedure: 4 view cervical spine Comparison: 12/21/2015 Findings: There is disc narrowing at C3-4 through C6-7. There is mild multilevel uncinate process hyp ertrophy. Straightening of cervical lordosis. No acute fracture or traumatic malalignment. No prevert ebral soft tissue swelling. Lung apices are normal. Impression: 1: Moderate cervical spondylosis. Reviewed, dictated and finalized at location A. Impression: 1: Moderate cervical spondylosis.
--- NOTE | ~2025-02-14 | XR_ITS ---
XR tibia fibula LT 2V 02/14/2025 10:10 INDICATION: Left leg pain PROCEDURE: 2 views left tibia/fibula COMPARISON: No prior studies for comparison. FINDINGS: Fracture, dislocation or subluxation is not identified. The soft tissues appear within norm al limits. No foreign bodies are identified. IMPRESSION: 1: NO ACUTE BONE OR JOINT ABNORMALITY IDENTIFIED. Reviewed, dictated and finalized at location A.
== END 2025-02-14 08:43 | disposition home or self-care (01) ==
LOC: MICIMG 08:43
PROVIDERS: PCP Physician Assistant; Visit Provider Physician Assistant
DX: R20.0 Anesthesia of skin (principal); M62.552 Muscle wasting and atrophy, not elsewhere classified, left thigh; S89.92XA Unspecified injury of left lower leg, initial encounter; X58.XXXA Exposure to other specified factors, initial encounter; M47.812 Spondylosis without myelopathy or radiculopathy, cervical region
CPT/HCPCS: 72040; 73590